=== PATIENT | female | born 1950 | race Caucasian/White ===

== ENCOUNTER → 2016-10-11 | Outpatient (CLI) | payer OTHER ==
[~2016-10-11] MED LIST: ACET-1311 PO; BISA10SU38 PR; CHOL100027 PO; CLOP1TAB15 PO; DEXT40GE PO; DLCS PR; FENT25DI2 TD; FLTE PR; FNTTP50 TD; GLGKIT IM; HMLI SC; INSDGI SC; INSDGI SQ; IPRASOL4 INH; LOSA50TA54 PO; MAGN400T6 PO; MAGNSUS5 PO; MOML PO; MULTTAB58 PO; NRN/300 PO; NRN/600 PO; NRN300 PO; NYST100098 TOP; OXGN; OXYC-57 PO; OXYC7.5T78 PO; POLY335019 PO; ROPI0.5T15 PO; SENN-91 PO; SERT-234 PO; SODIENE PR
[2016-10-11 09:56] LABS: BASO % 0.2 %; BASO ABS # 0.02 K/uL (0-0.2); COMPLETE YES; EOS % 3.5 %; HEMATOCRIT 39.5 % (37-47); IG% 0.2 %; LYMPH % 33.4 %; LYMPH ABS # 3.25 K/uL (1.2-3.4); MEAN CELL VOLUME 95.9 fL (80-100); MEAN CORPUSCULAR HEMOGLOBIN 29.4 pg (25-34); MEAN CORPUSCULAR HGB CONC 30.6 g/dl (32-36); MEAN PLATELET VOLUME 10.9 fL (7.4-10.4); MONO % 7.7 %; PLATELET COUNT 291 K/uL (130-400); RED BLOOD COUNT 4.12 M/uL (4.2-5.4); WHITE BLOOD COUNT 9.74 K/uL (4.8-10.8)
[2016-10-11 10:11] LABS: ESTIMATED AVERAGE GLUCOSE 126 mg/dl; HA1C FLAG Normal (Normal)
[2016-10-11 10:43] LABS: ALB/GLOB RATIO 0.7 (0.9-2); ALKALINE PHOSPHATASE 66 U/L (45-117); ALT/SGPT 15 U/L (12-78); AST/SGOT 13 U/L (15-37); BLOOD UREA NITROGEN 21 mg/dl (7-18); BUN/CREATININE RATIO 28.9 (10-20); CALCIUM 9.2 mg/dl (8.5-10.1); CARBON DIOXIDE 36 mmol/L (21-32); CHLORIDE 100 mmol/L (98-107); CHOLESTEROL 161 mg/dl (0-200); CHOLESTEROL/HDL RATIO 4.7; CREATININE 0.71 mg/dl (0.60-1.20); GLUCOSE 50 mg/dl (70-99); HDL CHOLESTEROL 34 mg/dl; LDL CHOLESTEROL CALCULATED 83 mg/dl; POTASSIUM 4.3 mmol/L (3.5-5.1); SODIUM 142 mmol/L (136-145); TRIGLYCERIDES 221 mg/dl (0-150); VERY LOW DENSITY LIPOPROT CALC 44 mg/dl
== END ==
LOC: C.LABUPUNI 09:36
PROVIDERS: ATTEND Family Medicine
DX: E11.42 Type 2 diabetes mellitus with diabetic polyneuropathy (principal); I50.9 Heart failure, unspecified; I10 Essential (primary) hypertension; E78.5 Hyperlipidemia, unspecified; I25.810 Atherosclerosis of coronary artery bypass graft(s) without angina pectoris

== ENCOUNTER → 2017-02-27 | Outpatient (CLI) | payer OTHER ==
[~2017-02-27] MED LIST changes: +CEPH-571 PO; +INSU100I SQ; +MAGN1TAB19 PO; +NITR-5 PO; +NYST80OI TOP; +SACC250C11 PO; +TRAM-10 PO
[2017-02-27 08:42] LABS: ALT/SGPT 13 U/L (12-78); BLOOD UREA NITROGEN 24 mg/dl (7-18); BUN/CREATININE RATIO 23.5 (10-20); CARBON DIOXIDE 36 mmol/L (21-32); CHLORIDE 100 mmol/L (98-107); GLUCOSE 110 mg/dl (70-99); POTASSIUM 4.3 mmol/L (3.5-5.1); SODIUM 141 mmol/L (136-145)
[2017-02-27 08:43] LABS: HEMATOCRIT 39.3 % (37-47); MEAN CELL VOLUME 98.7 fL (80-100); MEAN CORPUSCULAR HEMOGLOBIN 30.2 pg (25-34); MEAN CORPUSCULAR HGB CONC 30.5 g/dl (32-36); MEAN PLATELET VOLUME 11.5 fL (7.4-10.4); PLATELET COUNT 267 K/uL (130-400); RED BLOOD COUNT 3.98 M/uL (4.2-5.4); WHITE BLOOD COUNT 9.27 K/uL (4.8-10.8)
[2017-02-27 08:44] LABS: CALCIUM 8.6 mg/dl (8.5-10.1)
[2017-02-27 08:45] LABS: ESTIMATED AVERAGE GLUCOSE 117 mg/dl; HA1C FLAG Normal (Normal)
[2017-02-27 08:53] LABS: ALB/GLOB RATIO 0.7 (0.9-2); ALKALINE PHOSPHATASE 80 U/L (45-117); AST/SGOT 18 U/L (15-37)
== END ==
LOC: C.LABUPUNI 08:09
PROVIDERS: ATTEND Family Medicine
DX: E11.42 Type 2 diabetes mellitus with diabetic polyneuropathy (principal); I10 Essential (primary) hypertension; E55.9 Vitamin D deficiency, unspecified; F02.80 Dementia in other diseases classified elsewhere, unspecified severity, without behavioral disturbance, psychotic disturbance, mood disturbance, and anxiety

== ENCOUNTER → 2017-04-10 | Outpatient (CLI) | payer OTHER ==
[~2017-04-10] MED LIST changes: -INSU100I SQ; -NITR-5 PO; -NYST80OI TOP; -SACC250C11 PO; -TRAM-10 PO
[2017-04-10 09:24] LABS: BASO % 0.3 %; BASO ABS # 0.03 K/uL (0-0.2); COMPLETE YES; EOS % 4.4 %; HEMATOCRIT 37.6 % (37-47); IG% 0.3 %; LYMPH ABS # 3.51 K/uL (1.2-3.4); MEAN CELL VOLUME 98.7 fL (80-100); MEAN CORPUSCULAR HEMOGLOBIN 29.4 pg (25-34); MEAN CORPUSCULAR HGB CONC 29.8 g/dl (32-36); MEAN PLATELET VOLUME 10.2 fL (7.4-10.4); MONO % 8.9 %; NEUT % 55.1 %; PLATELET COUNT 379 K/uL (130-400); RED BLOOD COUNT 3.81 M/uL (4.2-5.4); WHITE BLOOD COUNT 11.31 K/uL (4.8-10.8)
[2017-04-10 09:54] LABS: ESTIMATED AVERAGE GLUCOSE 114 mg/dl; HA1C FLAG Normal (Normal)
[2017-04-10 10:18] LABS: ALB/GLOB RATIO 0.6 (0.9-2); ALKALINE PHOSPHATASE 92 U/L (45-117); ALT/SGPT 13 U/L (12-78); AST/SGOT 10 U/L (15-37); BLOOD UREA NITROGEN 22 mg/dl (7-18); BUN/CREATININE RATIO 27.3 (10-20); CALCIUM 9.2 mg/dl (8.5-10.1); CARBON DIOXIDE 38 mmol/L (21-32); CHLORIDE 102 mmol/L (98-107); CHOLESTEROL 154 mg/dl (0-200); CHOLESTEROL/HDL RATIO 4.3; CREATININE 0.79 mg/dl (0.60-1.20); GLUCOSE 33 mg/dl (70-99); HDL CHOLESTEROL 36 mg/dl; LDL CHOLESTEROL CALCULATED 76 mg/dl; POTASSIUM 4.1 mmol/L (3.5-5.1); SODIUM 142 mmol/L (136-145); TRIGLYCERIDES 212 mg/dl (0-150); VERY LOW DENSITY LIPOPROT CALC 42 mg/dl
== END ==
LOC: C.LABUPUNI 08:46
PROVIDERS: ATTEND Family Medicine
DX: D63.1 Anemia in chronic kidney disease (principal); E11.9 Type 2 diabetes mellitus without complications; I10 Essential (primary) hypertension; E78.5 Hyperlipidemia, unspecified

== ENCOUNTER → 2017-04-12 | Outpatient (CLI) | payer OTHER ==
[2017-04-12 08:38] LABS: HEMATOCRIT 36.5 % (37-47); MEAN CELL VOLUME 100.8 fL (80-100); MEAN CORPUSCULAR HEMOGLOBIN 31.8 pg (25-34); MEAN CORPUSCULAR HGB CONC 31.5 g/dl (32-36); MEAN PLATELET VOLUME 10.8 fL (7.4-10.4); PLATELET COUNT 304 K/uL (130-400); RED BLOOD COUNT 3.62 M/uL (4.2-5.4); WHITE BLOOD COUNT 10.14 K/uL (4.8-10.8)
== END ==
LOC: C.LABUPUNI 08:20
PROVIDERS: ATTEND Family Medicine
DX: R05 Cough (principal)

== ENCOUNTER 2017-06-27 08:37 | Inpatient (IN) | payer OTHER ==
[2017-06-27] VITALS (8 sets, daily range): BP systolic 104; BP diastolic 64; PULSE 75–83; TEMP 36.6–37.5; O2SAT 94–100; BMI 35.5
[~2017-06-27] VITALS: Ht 170.2 cm; Wt 106.8 kg
[~2017-06-27 08:37] MED LIST changes: -BISA10SU38 PR; -CEPH-571 PO; -DEXT40GE PO; -FNTTP50 TD; -GLGKIT IM; -INSDGI SQ; -IPRASOL4 INH; -MAGN1TAB19 PO; -MOML PO; -MULTTAB58 PO; -NRN/300 PO; -NRN/600 PO; -OXYC-57 PO; -SERT-234 PO; -SODIENE PR
[2017-06-27] MEDS ORDERED: FNTTP50 TD (09:08)
[2017-06-27] MEDS ORDERED: NRN/600 PO (09:08)
--- NOTE | 2017-06-27 09:12 | DIAGNOSTIC IMAGING REPORT ---
CHEST ONE VIEW PORTABLE CLINICAL HISTORY: 66 years-old Female presenting with FEVER, . TECHNIQUE: Portable upright AP view of the chest was obtained. COMPARISON: 12/14/2015. FINDINGS: Cardiac silhouette mildly prominent, unchanged. Mildly low lung volumes with hypoventilatory changes. Prominence of pulmonary vasculature. Elevation of the right hemidiaphragm, unchanged. Interval increase in right basilar opacity. Suspected small right pleural effusion. Left lung and pleural space clear. Osseous structures normal. Upper abdomen normal. IMPRESSION: 1. Right basilar opacity suspected. This be better demonstrated with dedicated PA and lateral views. This could be consistent with a focal consolidation/pneumonia. 2. Suspected small right pleural effusion. 3. Mild cardiomegaly with pulmonary basilar prominence could suggest volume overload. Electronically signed by: Cl Frank M.D. 06/27/2017 9:10 AM Dictated Date/Time: 06/27/2017 9:09 AM
[2017-06-27] MEDS ORDERED: MULTTAB58 PO (09:14)
[2017-06-27] MEDS ORDERED: INSDGI SQ (09:14)
[2017-06-27] MEDS ORDERED: SERT-234 PO (09:16)
[2017-06-27] MEDS ORDERED: NRN/300 PO (09:16)
[2017-06-27] MEDS ORDERED: CEFEPIME IV 2,000 MG in DEXTROSE 5% 100ML 100 ML IV STA (09:17)
[2017-06-27] MEDS ORDERED: SODIUM CHLORIDE 0.9% 500ML 500 ML IV STA (09:17)
[2017-06-27] MEDS ORDERED: OXYC-57 PO (09:18)
[2017-06-27] MEDS ORDERED: BISA10SU38 PR (09:19)
--- NOTE | 2017-06-27 09:19 | EMERGENCY ROOM VISIT NOTE ---
History Report prepared by Silvana: Muna Agee Under the Supervision of: Dr. Francisco Oates M.D. First contact with patient: 09:10 Chief Complaint: ILLNESS Stated Complaint: LETHARGIC/FEVER History of Present Illness The patient is a 66 year old female who presents to the Emergency Room with complaints of a persistent illness that began prior to arrival. Per nursing staff, the patient arrives via ALS from the [facility] with a history of Parkinson's disease. Nursing staff reports that the patient wears 2 liters of supplemental nasal cannula oxygen at all times. Nursing staff reports that ALS was called when the patient was found to have a fever this morning and an increase in tremors. Nursing staff reports that the patient has a history of frequent UTIs. The patient denies any pain. Source of History: patient Onset: prior to arrival Position: other (global) Quality: other (illness) Timing: other (persistent) Associated Symptoms: + fevers Note: Associated Symptoms: increased tremors Review of Systems See HPI for pertinent positives & negatives. A total of 10 systems reviewed and were otherwise negative. Past Medical & Surgical Medical Problems: (1) Anxiety disorder (2) Atrial flutter (3) Benign hypertension (4) Chronic Kidney Disease, Stage V (5) Coronary artery disease (6) Dementia (7) Depressive disorder (8) Diabetes mellitus type 2 (9) encephalopathy (10) Gastroesophageal reflux disease (11) History of [place] (myocardial infarction) (12) Hx-Venous Thrombosis&Embolism (13) Hyperlipidemia (14) Hyperlipidemia Nec/Nos (15) Hypertension Nos (16) Parkinson's disease (17) Personal Hx Of Tia,& Cerebral Infarction W/Out Res Deficits Family History Diabetes mellitus Heart disease Social History Smoking Status: Unknown if Ever Smoked Alcohol Use: none Drug Use: none Marital Status: Housing Status: [facility] Occupation Status: disabled Current/Historical Medications Scheduled Acetaminophen (Tylenol), 650 MG PO Q4HR PRN Acetaminophen (Tylenol), 650 MG PO Q4HR PRN Bisacodyl (Dulcolax), 1 SUPP ND UD Cholecalciferol (Vitamin D 1000 Unit), 5,000 INTER.UNIT PO DAILY Clopidogrel (Plavix), 75 MG PO DAILY Dextrose (Diabetic Use) (Insta-Glucose), 1 DOSE PO UD Fentanyl (Duragesic), 50 MCG TD CQ72HR Gabapentin (Neurontin), 1,200 MG PO HS Gabapentin (Neurontin), 900 MG PO BID Glucagon (Glucagon Emergency Kit), 1 DOSE IM UD Insulin Glargine (Lantus), 35 UNITS SQ QAM Insulin Lispro (Humalog), Unknown Dose SC ACHS Ipratropium-Albuterol (Duoneb), 1 TREATMENT INH Q4H Losartan Potassium (Cozaar), 50 MG PO DAILY Magnesium Hydroxide (Milk Of Magnesia), 30 ML PO UD Magnesium Oxide (Mag-Ox), 400 MG PO TID Multiple Vitamin (Multivitamin), 1 TAB PO QAM Polyethylene Glycol 3350 (Miralax), 17 GM PO DAILY Ropinirole (Requip), 0.5 MG PO BID Sennosides-Docusate Sodium (Senna S), 1 TAB PO BID Sertraline (Zoloft), 100 MG PO QAM Sodium Phosphate/Biphosphate (Fleet Enema), 1 EA ND UD Scheduled PRN Home O2 Therapy (Oxygen), 2 LITERS NA DAILY PRN for KEEP O2 SATS UP Oxycodone/Acetaminophen 5MG/325MG (Percocet 5MG/325MG), 1 TABLETS PO QID PRN for Pain Allergies Coded Allergies: Iodine (Verified Allergy, Mild, 06/27/17) Penicillins (Verified Allergy, Mild, PATIENT HAS TOLERATED CEFEPIME 02/02, 06/27/17) Amoxicillin (Unverified Allergy, Unknown, unknown, 06/27/17) Clavulanic Acid (Unverified Allergy, Unknown, unknown, 06/27/17) Lactase (Verified Allergy, Unknown, ., 06/27/17) Pseudoephedrine (Verified Allergy, Unknown, UNKNOWN, 06/27/17) Physical Exam Vital Signs Date Time Temp Pulse Resp B/P (MAP) Pulse Ox O2 Delivery O2 Flow Rate FiO2 06/27/17 13:04 74 16 83/41 100 Nasal Cannula 5.0 06/27/17 12:27 77 06/27/17 12:18 81 100 Nasal Cannula 5.0 06/27/17 11:52 97 Nasal Cannula 2.0 06/27/17 11:25 87 156/123 97 Room Air 06/27/17 11:07 96 30 91 06/27/17 10:37 110 25 06/27/17 10:31 121/98 06/27/17 10:12 148/100 06/27/17 10:09 94 148/100 2 Nasal Cannula 06/27/17 10:07 92 21 94 06/27/17 10:02 104/78 06/27/17 09:37 97 23 94 06/27/17 09:35 97 22 94 Nasal Cannula 2.0 Venturi Mask 06/27/17 09:31 37.4 06/27/17 09:07 100 23 90 06/27/17 08:55 132 06/27/17 08:52 37.6 110/80 90 Nasal Cannula 2.0 06/27/17 08:50 90 Nasal Cannula 2.0 06/27/17 08:50 94 Nasal Cannula 2.0 06/27/17 08:43 110/80 Physical Exam GENERAL: Patient is in no acute distress. HEENT: No acute trauma, normocephalic atraumatic, mucous membranes moist, no nasal congestion, no scleral icterus. NECK: No stridor, no adenopathy, no meningismus, trachea is midline. LUNGS: Clear to auscultation bilaterally, no wheeze, no rhonchi, breath sounds equal. HEART: Without murmurs gallops or rubs, regular rate and rhythm. ABDOMEN: Soft, nontender, bowel sounds positive, no hernias, no peritonitis. EXTREMITIES: No cyanosis or edema, full range of motion of all the joints without pain or difficulty, no signs for acute trauma. NEUROLOGIC: Extremity tremors consistent with Parkinsons, awake, answers simple questions, no focal deficits. SKIN: No rash, no jaundice, no diaphoresis. Medical Decision & Procedures ER Provider Diagnostic Interpretation: X-ray results as stated below per interpretation by me and the radiologist: CHEST ONE VIEW PORTABLE CLINICAL HISTORY: 66 years-old Female presenting with FEVER, . TECHNIQUE: Portable upright AP view of the chest was obtained. COMPARISON: 12/14/2015. FINDINGS: Cardiac silhouette mildly prominent, unchanged. Mildly low lung volumes with hypoventilatory changes. Prominence of pulmonary vasculature. Elevation of the right hemidiaphragm, unchanged. Interval increase in right basilar opacity. Suspected small right pleural effusion. Left lung and pleural space clear. Osseous structures normal. Upper abdomen normal. IMPRESSION: 1. Right basilar opacity suspected. This be better demonstrated with dedicated PA and lateral views. This could be consistent with a focal consolidation/pneumonia. 2. Suspected small right pleural effusion. 3. Mild cardiomegaly with pulmonary basilar prominence could suggest volume overload. Electronically signed by: Cl Frank M.D. 06/27/2017 9:10 AM Dictated Date/Time: 06/27/2017 9:09 AM Laboratory Results 06/27/17 09:50 Red Blood Count 4.03, Mean Corpuscular Volume 101.7, Mean Corpuscular Hemoglobin 29.3, Mean Corpuscular Hemoglobin Concent 28.8, Mean Platelet Volume 10.9, Neutrophils (%) (Auto) 75.1, Lymphocytes (%) (Auto) 13.6, Monocytes (%) ( Auto) 8.3, Eosinophils (%) (Auto) 2.7, Basophils (%) (Auto) 0.1, Neutrophils # ( Auto) 13.76, Lymphocytes # (Auto) 2.50, Monocytes # (Auto) 1.53, Eosinophils # ( Auto) 0.49, Basophils # (Auto) 0.02 06/27/17 09:50 Test 06/27/17 09:49 06/27/17 09:50 06/27/17 09:58 06/27/17 11:00 Prothrombin Time 9.9 SECONDS (9.0-12.0) Prothromb Time International Ratio 0.9 (0.9-1.1) Activated Partial Thromboplast Time 29.4 SECONDS (21.0-31.0) Partial Thromboplastin Ratio 1.1 White Blood Count 18.34 K/uL (4.8-10.8) Red Blood Count 4.03 M/uL (4.2-5.4) Hemoglobin 11.8 g/dL (12.0-16.0) Hematocrit 41.0 % (37-47) Mean Corpuscular Volume 101.7 fL (80-100) Mean Corpuscular Hemoglobin 29.3 pg (25-34) Mean Corpuscular Hemoglobin Concent 28.8 g/dl (32-36) Platelet Count 290 K/uL (130-400) Mean Platelet Volume 10.9 fL (7.4-10.4) Neutrophils (%) (Auto) 75.1 % Lymphocytes (%) (Auto) 13.6 % Monocytes (%) (Auto) 8.3 % Eosinophils (%) (Auto) 2.7 % Basophils (%) (Auto) 0.1 % Neutrophils # (Auto) 13.76 K/uL (1.4-6.5) Lymphocytes # (Auto) 2.50 K/uL (1.2-3.4) Monocytes # (Auto) 1.53 K/uL (0.11-0.59) Eosinophils # (Auto) 0.49 K/uL (0-0.5) Basophils # (Auto) 0.02 K/uL (0-0.2) RDW Standard Deviation 55.2 fL (36.4-46.3) RDW Coefficient of Variation 14.9 % (11.5-14.5) Immature Granulocyte % (Auto) 0.2 % Immature Granulocyte # (Auto) 0.04 K/uL (0.00-0.02) Anion Gap 2.0 mmol/L (3-11) Est Creatinine Clear Calc Drug Dose 81.9 ml/min Estimated GFR () 86.5 Estimated GFR (Non- 74.6 BUN/Creatinine Ratio 32.7 (10-20) Calcium Level 8.9 mg/dl (8.5-10.1) Magnesium Level 2.5 mg/dl (1.8-2.4) Total Bilirubin 0.2 mg/dl (0.2-1) Aspartate Amino Transf (AST/SGOT) 11 U/L (15-37) Alanine Aminotransferase (ALT/SGPT) 12 U/L (12-78) Alkaline Phosphatase 101 U/L (45-117) Total Protein 6.4 gm/dl (6.4-8.2) Albumin 2.6 gm/dl (3.4-5.0) Globulin 3.8 gm/dl (2.5-4.0) Albumin/Globulin Ratio 0.7 (0.9-2) Bedside Lactic Acid Venous 0.81 mmol/L (0.90-1.70) Urine Color YELLOW Urine Appearance CLOUDY (CLEAR) Urine pH 5.5 (4.5-7.5) Urine Specific [facility] 1.022 (1.000-1.030) Urine Protein NEG (NEG) Urine Glucose (UA) NEG (NEG) Urine Ketones NEG (NEG) Urine Occult Blood 1+ (NEG) Urine Nitrite POS (NEG) Urine Bilirubin NEG (NEG) Urine Urobilinogen NEG (NEG) Urine Leukocyte Esterase MODERATE (NEG) Urine WBC (Auto) >30 /hpf (0-5) Urine RBC (Auto) 0-4 /hpf (0-4) Urine Hyaline Casts (Auto) 1-5 /lpf (0-5) Urine Epithelial Cells (Auto) >30 /lpf (0-5) Urine Bacteria (Auto) 4+ (NEG) Urine Yeast (Auto) (NONE PRSENT) Test 06/27/17 11:24 Bedside Glucose 107 mg/dl (70-90) Laboratory results reviewed by me. Medications Administered Medications (Trade) Dose Ordered Sig/Shiva Route Start Time Stop Time Status Last Admin Dose Admin Sodium Chloride 500 ml @ 999 mls/hr Q31M STAT IV 06/27/17 09:17 06/27/17 09:47 DC 06/27/17 09:17 999 MLS/HR Cefepime HCl 2000 mg/Dextrose 112.5 ml @ 200 mls/hr ONE STAT IV 06/27/17 09:17 06/27/17 09:50 DC 06/27/17 09:57 200 MLS/HR Dextrose (Dextrose 50% 50ML Syringe) 50 ml STK-MED ONCE .ROUTE 06/27/17 10:37 06/27/17 10:38 DC 06/27/17 10:37 50 ML Albuterol/ Ipratropium (Duoneb) 3 ml Q4R INH 06/27/17 12:30 07/27/17 12:29 06/27/17 15:18 3 ML Oxycodone/ Acetaminophen (Percocet 5-325mg Tab) 1 tab QID PRN PO 06/27/17 12:30 07/11/17 12:29 06/27/17 14:50 1 TAB ECG Indication: other (increased tremors, fever) Rate (beats per minute): 133 Rhythm: other (narrow complex tachycardia) Findings: no acute ischemic change, no ectopy, other (baseline artifact making interpretation difficult) ED Course 0913: The patient was evaluated in room B12B. A complete history and physical exam was performed. 0917: Ordered Cefepime HCl 2000 mg/Dextrose 112.5 ml @ 200 mls/hr IV, Sodium Chloride 500 ml @ 999 mls/hr IV. 1037: Ordered Dextrose 50 ml .route. 1138: I discussed the patients case with Dr. SIVAKUMAR Lazcano. He is going to evaluate the patient for further treatment. Medical Decision The patient is a 66 year old female who presents to the ED with complaints of an illness. Differential diagnoses considered include sepsis, bacteremia, dehydration, UTI, pneumonia, cellulitis, electrolyte imbalance, renal failure. There is a significant leukocytosis at 18,000, this is consistent with infection. No concerning anemia. No kidney failure or hepatitis. EKG shows a narrow complex tachycardia, the rhythm was hard to interpret as there was significant baseline artifact. No acute ischemic change by EKG. Chest x-ray shows some possible congestion or atelectasis at the right base. Urinalysis does suggest infection. Urine culture and blood cultures are pending. Lactic acid level is not elevated making severe sepsis less likely. The patient received IV saline, she received IV cefepime. She received IV dextrose as her sugar dropped during her ER stay. The patient has been aggressively managed. I believe she is septic from a urinary source. This has caused the fever, increased tremor and change in mental status. Admission/observation is warranted. I spoke to the patient and case management. The on-call hospitalist was consulted. Medication Reconcilliation Current Medication List: was personally reviewed by me Blood Pressure Screening Patient's blood pressure: Elevated blood pressure Blood pressure disposition: Elevated BP felt to be situational Consults Time Called: 1121 Consulting Physician: SIVAKUMAR Perez Returned Call: [phone] I discussed the patients case with SIVAKUMAR ePrez. He is going to evaluate the patient for further treatment. Impression Primary Impression: Sepsis Additional Impressions: Change in mental status Hypoglycemia UTI (urinary tract infection) Critical Care I have personally spent greater than 34 minutes of critical care time in the direct management of this patient. This includes bedside care, interpretation of diagnostic studies, and testing, discussion with consultants, patient, and family members, and other required patient management activities. This 34 minutes is in excess of all separately billable procedures. Scribe Attestation The scribe's documentation has been prepared under my direction and personally reviewed by me in its entirety. I confirm that the note above accurately reflects all work, treatment, procedures, and medical decision making performed by me. Departure Information Dispostion Being Evaluated By Hospitalist Referrals [facility] (PCP) Problem Qualifiers
[2017-06-27] MEDS ORDERED: SODIENE PR (09:20)
[2017-06-27] MEDS ORDERED: IPRASOL4 INH (09:20)
[2017-06-27] MEDS ORDERED: GLGKIT IM (09:23)
[2017-06-27] MEDS ORDERED: MOML PO (09:23)
[2017-06-27] MEDS ORDERED: DEXT40GE PO (09:23)
[2017-06-27 10:20] LABS: INR 0.9 (0.9-1.1); PARTIAL THROMBOPLASTIN RATIO 1.1; PROTHROMBIN TIME (PATIENT) 9.9 SECONDS (9.0-12.0)
[2017-06-27 10:32] LABS: ALB/GLOB RATIO 0.7 (0.9-2); BUN/CREATININE RATIO 32.7 (10-20); CALCIUM 8.9 mg/dl (8.5-10.1); CREATININE 0.81 mg/dl (0.60-1.20); MAGNESIUM 2.5 mg/dl (1.8-2.4); POTASSIUM 4.4 mmol/L (3.5-5.1)
[2017-06-27 10:35] LABS: MEAN CELL VOLUME 101.7 fL (80-100); MEAN CORPUSCULAR HEMOGLOBIN 29.3 pg (25-34); MEAN CORPUSCULAR HGB CONC 28.8 g/dl (32-36); MEAN PLATELET VOLUME 10.9 fL (7.4-10.4); PLATELET COUNT 290 K/uL (130-400); RED BLOOD COUNT 4.03 M/uL (4.2-5.4); WHITE BLOOD COUNT 18.34 K/uL (4.8-10.8)
[2017-06-27] MEDS ORDERED: DEXTROSE 50% 50 ML SYR ONE (10:37)
[2017-06-27] MEDS ORDERED: DEXTROSE 50% 50 ML SYR IV ONE (10:45)
[2017-06-27 11:14] LABS: MANUAL MICROSCOPIC REQUIRED? NO; REVIEW REQ? YES; URINE APPEARANCE CLOUDY (CLEAR); URINE BILIRUBIN NEG (NEG); URINE COLOR YELLOW; URINE NITRITE POS (NEG); URINE PH 5.5 (4.5-7.5); URINE SPECIFIC GRAVITY 1.022 (1.000-1.030); UROBILINOGEN NEG (NEG)
[2017-06-27 11:26] LABS: URINE EPITHELIAL CELL AUTO >30 /lpf (0-5)
[2017-06-27 11:42] LABS: BASO % 0.1 %; BASO ABS # 0.02 K/uL (0-0.2); COMPLETE YES; EOS % 2.7 %; IG% 0.2 %; LYMPH % 13.6 %; MONO % 8.3 %; NEUT % 75.1 %
[2017-06-27] MEDS ORDERED: ONDANSETRON INJ 2 MG/ML 2 ML VIAL IV PRN (12:30)
[2017-06-27] MEDS ORDERED: POLYETHYLENE (MIRALAX) 17 GM PACK PO PRN (12:30)
[2017-06-27] MEDS ORDERED: ALUMINUM/MAGNESIUM/SIMETH (MAALOX MAX) 30 ML UDC PO PRN (12:30)
[2017-06-27] MEDS ORDERED: OXYCODONE/ACETAMINOPHEN 5-325 TAB PO PRN (12:30)
[2017-06-27] MEDS ORDERED: ACETAMINOPHEN 325 MG TAB PO PRN (12:30)
[2017-06-27] MEDS ORDERED: MAGNESIUM HYDROXIDE SUSP 30 ML UDC PO PRN (12:30)
[2017-06-27] MEDS ORDERED: SODIUM CHLORIDE 0.9% 1000ML 1,000 ML IV SCH (12:45)
--- NOTE | 2017-06-27 12:56 | History and Physical ---
History & Physical Date & Time of Service: Jun 27, 2017 at 12:41 Chief Complaint: Lethargic/Fever Primary Care Physician: Josué Skelton History of Present Illness Source: patient 66 y/o F Hx Parkinson, CAD, HTN, HPL, morbid obesity with 02-dependence, dementia. Pt resides in a nursing facility and was transported to the hospital due to lethargy/AMS and a fever. On arrival to the ER her initial POC revealed a glucose of 45 - a value of 85 was reported by EMS. She was febrile and tachycardic in addition, although per an EKG, the tachycardia may have been related to atrial flutter or SVT. She reverted to sinus rhythm with fluid administration. The pt, owing to dementia, did not know why she was sent to the hospital and had no specific complaints. She was awake and alert at the time of admission. Past Medical/Surgical History 1) Parkinson disease 2) Dementia 3) Morbid obesity 4) DM II 5) Chronic immobility 6) CAD - history of PR and remote stent 7) GERD 8) TIA 9) HTN 10) HPL Family History Diabetes mellitus Heart disease Could not provide detail Social History Smoking Status: Never Smoker Drug Use: none Marital Status: Housing status: senior living Occupational Status: disabled Immunizations History of Influenza Vaccine: Yes Influenza Vaccine Date: Sep 10, 2011 History of Tetanus Vaccine?: Unknown History of Pneumococcal: Yes Pneumococcal Date: Sep 10, 2011 History of Hepatitis B Vaccine: Yes Multi-Drug Resistant Organisms History of MDRO: Yes Allergies Coded Allergies: Iodine (Verified Allergy, Mild, 06/27/17) Penicillins (Verified Allergy, Mild, PATIENT HAS TOLERATED CEFEPIME 02/02, 06/27/17) Amoxicillin (Unverified Allergy, Unknown, unknown, 06/27/17) Clavulanic Acid (Unverified Allergy, Unknown, unknown, 06/27/17) Lactase (Verified Allergy, Unknown, ., 06/27/17) Pseudoephedrine (Verified Allergy, Unknown, UNKNOWN, 06/27/17) Home Medications Scheduled Acetaminophen (Tylenol), 650 MG PO Q4HR PRN Acetaminophen (Tylenol), 650 MG PO Q4HR PRN Bisacodyl (Dulcolax), 1 SUPP DE UD Cholecalciferol (Vitamin D 1000 Unit), 5,000 INTER.UNIT PO DAILY Clopidogrel (Plavix), 75 MG PO DAILY Dextrose (Diabetic Use) (Insta-Glucose), 1 DOSE PO UD Fentanyl (Duragesic), 50 MCG TD CQ72HR Gabapentin (Neurontin), 1,200 MG PO HS Gabapentin (Neurontin), 900 MG PO BID Glucagon (Glucagon Emergency Kit), 1 DOSE IM UD Insulin Glargine (Lantus), 35 UNITS SQ QAM Insulin Lispro (Humalog), Unknown Dose SC ACHS Ipratropium-Albuterol (Duoneb), 1 TREATMENT INH Q4H Losartan Potassium (Cozaar), 50 MG PO DAILY Magnesium Hydroxide (Milk Of Magnesia), 30 ML PO UD Magnesium Oxide (Mag-Ox), 400 MG PO TID Multiple Vitamin (Multivitamin), 1 TAB PO QAM Polyethylene Glycol 3350 (Miralax), 17 GM PO DAILY Ropinirole (Requip), 0.5 MG PO BID Sennosides-Docusate Sodium (Senna S), 1 TAB PO BID Sertraline (Zoloft), 100 MG PO QAM Sodium Phosphate/Biphosphate (Fleet Enema), 1 EA DE UD Scheduled PRN Home O2 Therapy (Oxygen), 2 LITERS NA DAILY PRN for KEEP O2 SATS UP Oxycodone/Acetaminophen 5MG/325MG (Percocet 5MG/325MG), 1 TABLETS PO QID PRN for Pain Review of Systems Pt could not provide - sent in from [place] due to fever and lethargy Physical Exam Vital Signs Date Time Temp Pulse Resp B/P (MAP) Pulse Ox O2 Delivery O2 Flow Rate FiO2 06/27/17 11:52 97 Nasal Cannula 2.0 06/27/17 11:25 87 156/123 97 Room Air 06/27/17 11:07 96 30 91 06/27/17 10:37 110 25 06/27/17 10:31 121/98 06/27/17 10:12 148/100 06/27/17 10:09 94 148/100 2 Nasal Cannula 06/27/17 10:07 92 21 94 06/27/17 10:02 104/78 06/27/17 09:37 97 23 94 06/27/17 09:35 97 22 94 Nasal Cannula 2.0 Venturi Mask 06/27/17 09:31 37.4 06/27/17 09:07 100 23 90 06/27/17 08:55 132 06/27/17 08:52 37.6 110/80 90 Nasal Cannula 2.0 06/27/17 08:50 90 Nasal Cannula 2.0 06/27/17 08:50 94 Nasal Cannula 2.0 06/27/17 08:43 110/80 General Appearance: WD/WN, + pertinent finding (Pleasant, obeses, elderly female - AAO x 1 - answers questions appropriately) Head: normocephalic Eyes: normal inspection ENT: normal ENT inspection, pharynx normal Neck: supple, + pertinent finding (Exam limited by habitus) Respiratory/Chest: chest non-tender, lungs clear, normal breath sounds Cardiovascular: regular rate, rhythm, no edema, no gallop, no murmur Abdomen/GI: normal bowel sounds, non tender, soft Back: normal inspection, no CVA tenderness Extremities/Musculoskelatal: normal inspection, no calf tenderness, normal capillary refill, no pedal edema, + pertinent finding (Lower extremity wasting apparent - LLE externally rotated - no pain with movement) Neurologic/Psych: ward service supervisor II-XII nml as tested, no motor/sensory deficits, alert, + pertinent finding (AAO x 1.5) Skin: normal color, warm/dry Diagnostics Laboratory Results Results Past 24 Hours Test 06/27/17 09:49 06/27/17 09:50 06/27/17 09:58 06/27/17 11:00 Range/Units Prothrombin Time 9.9 9.0-12.0 SECONDS Prothromb Time International Ratio 0.9 0.9-1.1 Activated Partial Thromboplast Time 29.4 21.0-31.0 SECONDS Partial Thromboplastin Ratio 1.1 White Blood Count 18.34 4.8-10.8 K/uL Red Blood Count 4.03 4.2-5.4 M/uL Hemoglobin 11.8 12.0-16.0 g/dL Hematocrit 41.0 37-47 % Mean Corpuscular Volume 101.7 80-100 fL Mean Corpuscular Hemoglobin 29.3 25-34 pg Mean Corpuscular Hemoglobin Concent 28.8 32-36 g/dl Platelet Count 290 130-400 K/uL Mean Platelet Volume 10.9 7.4-10.4 fL Neutrophils (%) (Auto) 75.1 % Lymphocytes (%) (Auto) 13.6 % Monocytes (%) (Auto) 8.3 % Eosinophils (%) (Auto) 2.7 % Basophils (%) (Auto) 0.1 % Neutrophils # (Auto) 13.76 1.4-6.5 K/uL Lymphocytes # (Auto) 2.50 1.2-3.4 K/uL Monocytes # (Auto) 1.53 0.11-0.59 K/uL Eosinophils # (Auto) 0.49 0-0.5 K/uL Basophils # (Auto) 0.02 0-0.2 K/uL RDW Standard Deviation 55.2 36.4-46.3 fL RDW Coefficient of Variation 14.9 11.5-14.5 % Immature Granulocyte % (Auto) 0.2 % Immature Granulocyte # (Auto) 0.04 0.00-0.02 K/uL Sodium Level 145 136-145 mmol/L Potassium Level 4.4 3.5-5.1 mmol/L Chloride Level 104 98-107 mmol/L Carbon Dioxide Level 39 21-32 mmol/L Anion Gap 2.0 3-11 mmol/L Blood Urea Nitrogen 27 7-18 mg/dl Creatinine 0.81 0.60-1.20 mg/dl Est Creatinine Clear Calc Drug Dose 81.9 ml/min Estimated GFR () 86.5 Estimated GFR (Non- 74.6 BUN/Creatinine Ratio 32.7 10-20 Random Glucose 42 70-99 mg/dl Calcium Level 8.9 8.5-10.1 mg/dl Magnesium Level 2.5 1.8-2.4 mg/dl Total Bilirubin 0.2 0.2-1 mg/dl Aspartate Amino Transf (AST/SGOT) 11 15-37 U/L Alanine Aminotransferase (ALT/SGPT) 12 12-78 U/L Alkaline Phosphatase 101 45-117 U/L Total Protein 6.4 6.4-8.2 gm/dl Albumin 2.6 3.4-5.0 gm/dl Globulin 3.8 2.5-4.0 gm/dl Albumin/Globulin Ratio 0.7 0.9-2 Bedside Lactic Acid Venous 0.81 0.90-1.70 mmol/L Urine Color YELLOW Urine Appearance CLOUDY CLEAR Urine pH 5.5 4.5-7.5 Urine Specific [place] 1.022 1.000-1.030 Urine Protein NEG NEG Urine Glucose (UA) NEG NEG Urine Ketones NEG NEG Urine Occult Blood 1+ NEG Urine Nitrite POS NEG Urine Bilirubin NEG NEG Urine Urobilinogen NEG NEG Urine Leukocyte Esterase MODERATE NEG Urine WBC (Auto) >30 0-5 /hpf Urine RBC (Auto) 0-4 0-4 /hpf Urine Hyaline Casts (Auto) 1-5 0-5 /lpf Urine Epithelial Cells (Auto) >30 0-5 /lpf Urine Bacteria (Auto) 4+ NEG Urine Yeast (Auto) NONE PRSENT Test 06/27/17 11:24 Range/Units Bedside Glucose 107 70-90 mg/dl Microbiology Results 06/27/17 Blood Culture, Received Pending 06/27/17 Blood Culture, Received Pending 06/27/17 Urine Culture, Received Pending EKG A flutter - new onset Impression Assessment and Plan 66 y/o F Hx Parkinson, CAD, HTN, HPL, morbid obesity with 02-dependence, dementia. Pt resides in a nursing facility and was transported to the hospital due to lethargy/AMS and a fever. On arrival to the ER her initial POC revealed a glucose of 45 - a value of 85 was reported by EMS. She was febrile and tachycardic in addition, although per an EKG, the tachycardia may have been related to atrial flutter or SVT. She reverted to sinus rhythm with fluid administration. The pt, owing to dementia, did not know why she was sent to the hospital and had no specific complaints. She was awake and alert at the time of admission. 1) UTI - leukocytosis and fever present on admission - AMS reported at nursing facility. Pt placed on Ceftriaxone pending culture results. IVF provided. Assigned to telemetry due to indeterminate tachycardia. 2) Tachycardia - resolved with IVF - initial EKG is indeterminate - reported as SVT vs flutter by cardiology. Should also consider artifact as she was exhibiting persistent tremors. Currently in a sinus rhythm - would consider full workup if there is recurrence of tachycardia and clear evidence of flutter/ SVT. 3) Parkinson - cont Requip 4) DM - hypoglycemic on arrival - resolved with D50 - monitor on telemetry - long-acting insulin held - placed on SS 5) Dementia - pt resides in a NH and is entirely care-dependent 6) Chronic hypoxia - obesity hypoventilation - placed on 02 protocol Full code - Heparin prophylaxis Total time for this admit including review of labs, meds, EKG - discussion with pt and ER attending - 37 min Level of Care Telemetry Advanced Directives Existing Living Will: Yes Existing Power of Application Architect: Yes (EVITA SISTER ) Resuscitation Status FULL RESUSCITATION VTE Prophylaxis VTE Risk Assessment Done? Y/N: Yes Risk Level: Moderate Given or contraindicated: Unfractionated heparin SQ
[2017-06-27] MEDS ORDERED: FENTANYL PATCH REMOVE & WASTE SCH (14:45)
[2017-06-27] MEDS ORDERED: GLUCOSE 10 TABS/TUBE PO PRN (14:45)
[2017-06-27] MEDS ORDERED: DEXTROSE 50% 50 ML SYR IV PRN (14:45)
[2017-06-27] MEDS ORDERED: GLUCAGON FOR INJ 1 MG VIAL SQ PRN (14:45)
[2017-06-27] MEDS ORDERED: GLUCOSE 40% GEL 15 GM TUBE PO PRN (14:45)
[2017-06-27] MEDS ORDERED: FENTANYL 50 MCG/HR TDSY TD SCH (14:46)
[2017-06-27] MEDS: ALBUT/IPRATROP 3MG/0.5MG NEB 3 ML VIAL INH SCH ×3 (15:18→22:59)
[2017-06-27] MEDS: CHECK FENTANYL PATCH PLACEMENT SCH (16:07)
[2017-06-27] MEDS: INSULIN ASPART 100 UNITS/ML 3 ML PEN SC SCH ×2 (16:15→20:14)
[2017-06-27] MEDS: CEFTRIAXONE SOD INJ 1 GM in DEXTROSE 5% ADD-VANTAGE 50ML 50 ML IV SCH (18:35)
[2017-06-27] MEDS: ROPINIROLE HCL 1 MG TAB PO SCH (20:19)
[2017-06-27] MEDS: DOCUSATE SODIUM/SENNA 50/8.6MG TAB PO SCH (20:19)
[2017-06-27] MEDS: GABAPENTIN 600 MG TAB PO SCH (20:19)
[2017-06-27] MEDS: MAGNESIUM OXIDE 400 MG TAB PO SCH (20:19)
[2017-06-28] VITALS (16 sets, daily range): BP systolic 112–142; BP diastolic 64–99; PULSE 73–123; TEMP 36.4–36.9; O2SAT 88–99
[2017-06-28] MEDS: CHECK FENTANYL PATCH PLACEMENT SCH ×3 (00:31→16:00)
[2017-06-28] MEDS: ALBUT/IPRATROP 3MG/0.5MG NEB 3 ML VIAL INH SCH ×6 (03:15→23:11)
[2017-06-28 06:05] LABS: HEMATOCRIT 37.4 % (37-47); MEAN CORPUSCULAR HEMOGLOBIN 29.4 pg (25-34); MEAN CORPUSCULAR HGB CONC 29.4 g/dl (32-36); MEAN PLATELET VOLUME 10.9 fL (7.4-10.4); PLATELET COUNT 238 K/uL (130-400); RED BLOOD COUNT 3.74 M/uL (4.2-5.4); WHITE BLOOD COUNT 12.92 K/uL (4.8-10.8)
[2017-06-28 06:48] LABS: BUN/CREATININE RATIO 32.4 (10-20); CALCIUM 8.5 mg/dl (8.5-10.1); CREATININE 0.75 mg/dl (0.60-1.20); MAGNESIUM 2.5 mg/dl (1.8-2.4); POTASSIUM 4.1 mmol/L (3.5-5.1)
[2017-06-28] MEDS: INSULIN ASPART 100 UNITS/ML 3 ML PEN SC SCH ×4 (07:00→21:42)
[2017-06-28] MEDS: GABAPENTIN 300 MG CAP PO SCH ×3 (08:05→21:51)
[2017-06-28] MEDS: LOSARTAN POTASSIUM 50 MG TAB PO SCH (08:05)
[2017-06-28] MEDS: CLOPIDOGREL BISULFATE 75 MG TAB PO SCH (08:06)
[2017-06-28] MEDS: ROPINIROLE HCL 1 MG TAB PO SCH ×2 (08:08→21:51)
[2017-06-28] MEDS: DOCUSATE SODIUM/SENNA 50/8.6MG TAB PO SCH ×2 (08:08→21:53)
[2017-06-28] MEDS: SERTRALINE HCL 100 MG TAB PO SCH (08:08)
[2017-06-28] MEDS: MAGNESIUM OXIDE 400 MG TAB PO SCH ×3 (08:09→21:52)
--- NOTE | 2017-06-28 09:59 | Hospitalist Progress Note ---
Hospitalist Progress Note Date of Service Jun 28, 2017. (Latanya Rodney ., PA-C) Subjective Pt evaluation today including: conversation w/ patient, physical exam, lab review, review of studies, review of inpatient medication list Patient laying in bed. No signs of acute distress. Alert/oriented x3. Does not recall why she came to the hospital. Denies any current complaints. Follows commands, answers questions appropriately Resident of [facility]. Does not ambulate- care dependent. Patient denies any fever, chills, sweats, lightheadedness, dizziness, vision changes, CP, palpitations, edema, SOB, wheezing, cough, abdominal pain, nausea, vomiting, diarrhea, urinary symptoms, melena, numbness/tingling, weakness, muscle/joint pain, anxiety/depression, active bleeding, or new skin discoloration/changes. (Latanya Rodney ., PA-C) Medications Current Inpatient Medications Medications (Trade) Dose Ordered Sig/Shiva Route Start Time Stop Time Status Last Admin Dose Admin Acetaminophen (Tylenol Tab) 650 mg Q4H PRN PO 06/27/17 12:30 07/27/17 12:29 Al Hydrox/Mg Hydrox/Simethicone (Maalox Max Susp) 15 ml Q4H PRN PO 06/27/17 12:30 07/27/17 12:29 Magnesium Hydroxide (Milk Of Magnesia Susp) 30 ml Q6H PRN PO 06/27/17 12:30 07/27/17 12:29 Polyethylene (Miralax Powder Packet) 17 gm DAILY PRN PO 06/27/17 12:30 07/27/17 12:29 Ondansetron HCl (Zofran Inj) 4 mg Q6H PRN IV 06/27/17 12:30 07/27/17 12:29 Clopidogrel Bisulfate (plAVix TAB) 75 mg DAILY PO 06/28/17 09:00 07/28/17 08:59 06/28/17 08:06 75 MG Fentanyl (Duragesic Patch) 50 mcg Q72H TD 06/27/17 14:46 07/11/17 14:45 06/27/17 14:51 50 MCG Gabapentin (Neurontin Cap) 900 mg BID@0900,1200 PO 06/28/17 09:00 07/28/17 08:59 06/28/17 08:05 900 MG Gabapentin (Neurontin Tab) 1,200 mg HS PO 06/27/17 21:00 07/27/17 20:59 06/27/17 20:19 1,200 MG Albuterol/ Ipratropium (Duoneb) 3 ml Q4R INH 06/27/17 12:30 07/27/17 12:29 06/28/17 07:04 3 ML Losartan Potassium (coZAAR TAB) 50 mg DAILY PO 06/28/17 09:00 07/28/17 08:59 06/28/17 08:05 50 MG Magnesium Oxide (Mag-Ox Tab) 400 mg TID PO 06/27/17 21:00 07/27/17 20:59 06/27/17 20:19 400 MG Oxycodone/ Acetaminophen (Percocet 5-325mg Tab) 1 tab QID PRN PO 06/27/17 12:30 07/11/17 12:29 06/27/17 14:50 1 TAB Ropinirole HCl (Requip Tab) 0.5 mg BID PO 06/27/17 21:00 07/27/17 20:59 06/28/17 08:08 0.5 MG Senna/Docusate Sodium (Senokot S Tab) 1 tab BID PO 06/27/17 21:00 07/27/17 20:59 06/28/17 08:08 1 TAB Sertraline HCl (Zoloft Tab) 100 mg QAM PO 06/28/17 09:00 07/28/17 08:59 06/28/17 08:08 100 MG Insulin Aspart (novoLOG ASPART) SLIDING SCALE G... ACHS SC 06/27/17 16:00 07/27/17 15:59 Ceftriaxone Sodium 1 gm/ Dextrose 50 ml @ 100 mls/hr Q24H IV 06/27/17 19:00 07/07/17 18:59 06/27/17 18:35 100 MLS/HR Glucose (Glucose 40% Gel) 15-30 GRAMS 15 GRAMS... UD PRN PO 06/27/17 14:45 07/27/17 14:44 Glucose (Glucose Chew Tab) 4-8 Tablets 4 Tabl... UD PRN PO 06/27/17 14:45 07/27/17 14:44 Dextrose (Dextrose 50% 50ML Syringe) 25-50ML OF 50% DW IV FOR... UD PRN IV 06/27/17 14:45 07/27/17 14:44 Glucagon (Glucagon Inj) 1 mg UD PRN SQ 06/27/17 14:45 07/27/17 14:44 Miscellaneous (Fentanyl Patch Remove & Waste) 1 ea Q3D N/A 06/27/17 14:45 07/27/17 14:44 06/27/17 14:53 1 EA Miscellaneous Information (Check Fentanyl Patch Placement) 1 ea QS N/A 06/27/17 16:00 07/27/17 15:59 06/28/17 08:04 1 EA (Latanya Rodney, CY) Objective Vital Signs Date Time Temp Pulse Resp B/P (MAP) Pulse Ox O2 Delivery O2 Flow Rate FiO2 06/28/17 08:31 99 Nasal Cannula 06/28/17 07:43 36.6 78 18 112/78 (89) 99 Nasal Cannula 06/28/17 07:06 82 16 93 Nasal Cannula 3.0 06/28/17 04:00 36.9 82 18 126/64 (84) 96 06/28/17 04:00 Nasal Cannula 2.0 06/28/17 03:15 99 16 97 Nasal Cannula 2.0 06/28/17 00:43 36.8 123 20 119/99 (106) 94 Nasal Cannula 2.0 06/27/17 23:59 Nasal Cannula 2.0 06/27/17 22:59 83 16 95 Nasal Cannula 2.0 06/27/17 20:04 94 Nasal Cannula 5.0 06/27/17 19:34 36.6 75 18 104/64 (77) 96 Nasal Cannula 6.0 06/27/17 19:15 76 18 100 Nasal Cannula 5.0 06/27/17 16:27 94 Nasal Cannula 5.0 06/27/17 15:43 37.5 78 18 94 5.0 06/27/17 15:20 76 18 95 Nasal Cannula 5.0 06/27/17 13:43 74 16 94/54 100 06/27/17 13:04 74 16 83/41 100 Nasal Cannula 5.0 06/27/17 12:27 77 06/27/17 12:18 81 100 Nasal Cannula 5.0 06/27/17 11:52 97 Nasal Cannula 2.0 06/27/17 11:25 87 156/123 97 Room Air 06/27/17 11:07 96 30 91 06/27/17 10:37 110 25 06/27/17 10:31 121/98 06/27/17 10:12 148/100 06/27/17 10:09 94 148/100 2 Nasal Cannula 06/27/17 10:07 92 21 94 06/27/17 10:02 104/78 (Latanya Rodney, PA-C) Physical Exam General Appearance: no apparent distress, + obese, + pertinent finding (2L O2 NC ) Eyes: PERRL ENT: hearing grossly normal Neck: supple, no JVD Respiratory/Chest: lungs clear, no respiratory distress, no accessory muscle use Cardiovascular: regular rate, rhythm Abdomen: normal bowel sounds, non tender, soft Extremities: no pedal edema, no calf tenderness, + pertinent finding (waffle boots ) Neurologic/Psychiatric: alert, oriented x 3, + pertinent finding (+tremor ) Skin: normal color, warm/dry, no rash (Latanya Rodney ., PA-C) Laboratory Results Last 24 Hours Test 06/27/17 09:49 06/27/17 09:50 06/27/17 09:58 06/27/17 11:00 Prothrombin Time 9.9 SECONDS Prothromb Time International Ratio 0.9 Activated Partial Thromboplast Time 29.4 SECONDS Partial Thromboplastin Ratio 1.1 White Blood Count 18.34 K/uL Red Blood Count 4.03 M/uL Hemoglobin 11.8 g/dL Hematocrit 41.0 % Mean Corpuscular Volume 101.7 fL Mean Corpuscular Hemoglobin 29.3 pg Mean Corpuscular Hemoglobin Concent 28.8 g/dl Platelet Count 290 K/uL Mean Platelet Volume 10.9 fL Neutrophils (%) (Auto) 75.1 % Lymphocytes (%) (Auto) 13.6 % Monocytes (%) (Auto) 8.3 % Eosinophils (%) (Auto) 2.7 % Basophils (%) (Auto) 0.1 % Neutrophils # (Auto) 13.76 K/uL Lymphocytes # (Auto) 2.50 K/uL Monocytes # (Auto) 1.53 K/uL Eosinophils # (Auto) 0.49 K/uL Basophils # (Auto) 0.02 K/uL RDW Standard Deviation 55.2 fL RDW Coefficient of Variation 14.9 % Immature Granulocyte % (Auto) 0.2 % Immature Granulocyte # (Auto) 0.04 K/uL Sodium Level 145 mmol/L Potassium Level 4.4 mmol/L Chloride Level 104 mmol/L Carbon Dioxide Level 39 mmol/L Anion Gap 2.0 mmol/L Blood Urea Nitrogen 27 mg/dl Creatinine 0.81 mg/dl Est Creatinine Clear Calc Drug Dose 81.9 ml/min Estimated GFR () 86.5 Estimated GFR (Non- 74.6 BUN/Creatinine Ratio 32.7 Random Glucose 42 mg/dl Calcium Level 8.9 mg/dl Magnesium Level 2.5 mg/dl Total Bilirubin 0.2 mg/dl Aspartate Amino Transf (AST/SGOT) 11 U/L Alanine Aminotransferase (ALT/SGPT) 12 U/L Alkaline Phosphatase 101 U/L Total Protein 6.4 gm/dl Albumin 2.6 gm/dl Globulin 3.8 gm/dl Albumin/Globulin Ratio 0.7 Bedside Lactic Acid Venous 0.81 mmol/L Urine Color YELLOW Urine Appearance CLOUDY Urine pH 5.5 Urine Specific Solomon 1.022 Urine Protein NEG Urine Glucose (UA) NEG Urine Ketones NEG Urine Occult Blood 1+ Urine Nitrite POS Urine Bilirubin NEG Urine Urobilinogen NEG Urine Leukocyte Esterase MODERATE Urine WBC (Auto) >30 /hpf Urine RBC (Auto) 0-4 /hpf Urine Hyaline Casts (Auto) 1-5 /lpf Urine Epithelial Cells (Auto) >30 /lpf Urine Bacteria (Auto) 4+ Urine Yeast (Auto) Test 06/27/17 11:24 06/27/17 15:57 06/27/17 20:13 06/28/17 05:37 Bedside Glucose 107 mg/dl 83 mg/dl 118 mg/dl White Blood Count 12.92 K/uL Red Blood Count 3.74 M/uL Hemoglobin 11.0 g/dL Hematocrit 37.4 % Mean Corpuscular Volume 100.0 fL Mean Corpuscular Hemoglobin 29.4 pg Mean Corpuscular Hemoglobin Concent 29.4 g/dl RDW Standard Deviation 53.4 fL RDW Coefficient of Variation 14.6 % Platelet Count 238 K/uL Mean Platelet Volume 10.9 fL Sodium Level 145 mmol/L Potassium Level 4.1 mmol/L Chloride Level 105 mmol/L Carbon Dioxide Level 37 mmol/L Anion Gap 3.0 mmol/L Blood Urea Nitrogen 24 mg/dl Creatinine 0.75 mg/dl Est Creatinine Clear Calc Drug Dose 88.2 ml/min Estimated GFR () 94.9 Estimated GFR (Non- 81.9 BUN/Creatinine Ratio 32.4 Random Glucose 63 mg/dl Calcium Level 8.5 mg/dl Magnesium Level 2.5 mg/dl Thyroid Stimulating Hormone (TSH) 1.010 uIu/ml Test 06/28/17 06:36 06/28/17 06:57 Bedside Glucose 63 mg/dl 100 mg/dl (Latanya Rodney, CY) Assessment and Plan 66 y/o F Hx Parkinson, CAD, HTN, HPL, morbid obesity with 02-dependence, dementia. Pt resides in a nursing facility and was transported to the hospital due to lethargy/AMS and a fever. On arrival to the ER her initial POC revealed a glucose of 45 - a value of 85 was reported by EMS. She was febrile and tachycardic in addition, although per an EKG, the tachycardia may have been related to atrial flutter or SVT. She reverted to sinus rhythm with fluid administration. The pt, owing to dementia, did not know why she was sent to the hospital and had no specific complaints. She was awake and alert at the time of admission. Lethargy/AMS w/ tachycardiac, leukocytosis and fever on admission- sepsis, ? secondary to UTI POA: - Leukocytosis- IMPROVING - UCx w/ >3 organisms of high count- Repeat UCx as recommended- pt incontinent/ refusing Palafox- if cannot repeat UCx will treat empirically based off UA results - IV Cefepime x1 dose in ED; admitted on IV Rocephin- started on 06/27 - CXR- ?PNA, pulmonary edema- no cough, sputum production, increased O2 demand Tachycardia, ?secondary to flutter vs SVT vs artifact due to Parkinson's disease : - Admitted to tele for cardiac monitoring- no acute events - Resolution in tachy w/ IVF - EKGs QAM and PRN w/ chest pain - TSH WNL Parkinson: Continue Requip 0.5 mg BID, Gabapentin 900 BID and 1200 mg HS T2DM w/ hypoglycemia: - Glucose 42 on arrival- treated w/ D50- RESOLVED - Lantus 35 U QAM held - BSG ACHS and sliding insulin scale HTN: Losartan 50 mg daily CAD, h/o TIA: Plavix 75 mg daily Hypomagnesemia w/ hypermagnesemia at 2.5: Held Mag-Ox 400 mg TID, follow mag level Chronic hypoxia secondary to obesity hypoventilation: - O2 protocol - DuoNebs Depression, anxiety: Zoloft 100 mg QAM DVT prophylaxis: Heparin SQ BID Code Status: LEVEL I, FULL Dispo: Resident of [facility]- CM consulted- likely transfer to med/surg this afternoon if no acute events on monitor and discharge within next 1-2 days (Latanya Rodney ., PA-C) I agree with PA assessment and plan and have seen and examined pt myself Resting comfortably in bed Noted to be in mild distress Likely admitted with UTI, awaiting cult, will need palafox Pt has persistent incontinence Leukocytosis improving at this time No fevers noted DC likely in next 24 hrs (Paulino Melendez, D.O.)
--- NOTE | 2017-06-28 10:37 | Clinical Documentation Query ---
CLINICAL DOCUMENTATION QUERY 66 y/o F Hx Parkinson, CAD, HTN, HPL, morbid obesity with 02-dependence, dementia. Pt resides in a nursing facility and was transported to the hospital due to lethargy/AMS and a fever. In your clinical opinion is this patient being managed for: ( X ) Sepsis ( ) Not Agree ( ) Other explanation of clinical findings (Please Explain) ( ) Unable to determine (Please Define) ( ) Need to Discuss The medical record reflects the following clinical findings, treatment, and risk factors. Clinical Indicators: WBC 18, fever, lethargic, tremors, tachycardia, tachypnea, current and chronic UTIs, possible pnx on CXR Treatment:Telemetry, rocephin IV, cefepime IV, O2, serial lab monitoring Risk Factors:Age, chronic UTI, snf resident, decreased mobility, obesity Please clarify and document your clinical opinion in the progress notes and discharge summary. Terms such as "probable", "suspected", "likely", "questionable", "possible", or "still to be ruled out" are acceptable. IF IN AGREEMENT, YOU MUST DOCUMENT ABOVE DIAGNOSTIC STATEMENT IN DAILY PROGRESS NOTES AND DISCHARGE SUMMARY. This document is not part of the patient's record. Thank You, Autumn Fam RN [phone]
[2017-06-28] MEDS: CEFTRIAXONE SOD INJ 1 GM in DEXTROSE 5% ADD-VANTAGE 50ML 50 ML IV SCH (18:05)
[2017-06-28] MEDS: GABAPENTIN 600 MG TAB PO SCH (21:51)
[2017-06-28] MEDS: HEPARIN SOD 5000 UNIT/0.5 ML CARP SQ SCH (21:55)
[2017-06-29] VITALS (12 sets, daily range): BP systolic 110–122; BP diastolic 80–82; PULSE 65–77; TEMP 36.4–37.4; O2SAT 86–99; Ht 170.2 cm; Wt 106.8 kg
[2017-06-29] MEDS: CHECK FENTANYL PATCH PLACEMENT SCH ×3 (00:15→13:30)
[2017-06-29] MEDS: ALBUT/IPRATROP 3MG/0.5MG NEB 3 ML VIAL INH SCH ×5 (03:32→23:13)
[2017-06-29 07:42] LABS: HEMATOCRIT 37.6 % (37-47); MEAN CELL VOLUME 98.7 fL (80-100); MEAN CORPUSCULAR HEMOGLOBIN 29.4 pg (25-34); MEAN CORPUSCULAR HGB CONC 29.8 g/dl (32-36); MEAN PLATELET VOLUME 10.9 fL (7.4-10.4); PLATELET COUNT 247 K/uL (130-400); RED BLOOD COUNT 3.81 M/uL (4.2-5.4); WHITE BLOOD COUNT 10.55 K/uL (4.8-10.8)
[2017-06-29 08:11] LABS: BUN/CREATININE RATIO 25.8 (10-20); CALCIUM 8.9 mg/dl (8.5-10.1); CREATININE 0.71 mg/dl (0.60-1.20); MAGNESIUM 2.2 mg/dl (1.8-2.4); POTASSIUM 4.2 mmol/L (3.5-5.1)
[2017-06-29] MEDS: INSULIN ASPART 100 UNITS/ML 3 ML PEN SC SCH ×4 (10:10→22:09)
[2017-06-29] MEDS: LOSARTAN POTASSIUM 50 MG TAB PO SCH (10:13)
[2017-06-29] MEDS: MAGNESIUM OXIDE 400 MG TAB PO SCH ×3 (10:14→22:06)
[2017-06-29] MEDS ORDERED: MAGN1TAB19 PO (10:16)
[2017-06-29] MEDS: CLOPIDOGREL BISULFATE 75 MG TAB PO SCH (10:16)
[2017-06-29] MEDS: ROPINIROLE HCL 1 MG TAB PO SCH ×2 (10:17→22:06)
[2017-06-29] MEDS ORDERED: CEPH-571 PO ×2 (10:17→12:06)
[2017-06-29] MEDS: DOCUSATE SODIUM/SENNA 50/8.6MG TAB PO SCH ×2 (10:20→22:06)
[2017-06-29] MEDS: SERTRALINE HCL 100 MG TAB PO SCH (10:21)
[2017-06-29] MEDS: HEPARIN SOD 5000 UNIT/0.5 ML CARP SQ SCH ×2 (10:24→22:06)
--- NOTE | 2017-06-29 10:24 | Discharge Instructions ---
Discharge Instructions Date of Service Jun 29, 2017. Admission Reason for Admission: Atrial Flutter, Uti Discharge Discharge Diagnosis / Problem: Altered mental status secondary to UTI Discharge Goals Goal(s): Decrease discomfort, Improve function, Improve disease control, Learn about illness, Diagnostic testing, Therapeutic intervention, Prevent Disease Progression Activity Recommendations Activity Level: Assistance Required . Additional Information Patient informed of condition: Yes Advance Directives: Yes DNR: No Level of Care: Skilled Communicable Disease: No Prognosis: Improving Oxygen at (LPM): by protocol Fernandez Catheter: No Instructions / Follow-Up Instructions / Follow-Up Lethargy/AMS w/ tachycardiac, leukocytosis and fever on admission- sepsis, likely secondary to UTI POA- IMPROVING: - Leukocytosis- IMPROVING - UCx w/ >3 organisms of high count- Repeat UCx as recommended- pt incontinent/ refusing Fernandez- could not obtain repeat UCx - BCx- NDTD - IV Cefepime x1 dose in ED; admitted on IV Rocephin- started on 06/27 -- Past UTI cultures reviewed- E.col, resistant to Levaquin/Cipro- discharge on Keflex 500 mg BID to complete 7 day treatment - CXR- ?PNA, pulmonary edema- no cough, sputum production, increased O2 demand Tachycardia, ?secondary to flutter vs SVT vs artifact due to Parkinson's disease - RESOLVED: - Admitted to tele for cardiac monitoring- no acute events - Resolution in tachy w/ IVF - EKGs QAM and PRN w/ chest pain - TSH WNL Parkinson: Continue Requip 0.5 mg BID, Gabapentin 900 BID and 1200 mg HS T2DM w/ hypoglycemic episodes: - Glucose 42 on arrival- treated w/ D50- RESOLVED - Lantus 35 U QAM held- discontinue at discharge and continue sliding insulin scale at [facility] - BSG ACHS and sliding insulin scale HTN: Losartan 50 mg daily CAD, h/o TIA: Plavix 75 mg daily Hypomagnesemia w/ hypermagnesemia at 2.5- RESOLVED: Held Mag-Ox 400 mg TID- changed dose to BID at discharge Chronic hypoxia secondary to obesity hypoventilation: - O2 protocol - DuoNebs Depression, anxiety: Zoloft 100 mg QAM DVT prophylaxis: Heparin SQ BID Code Status: LEVEL I, FULL FOLLOW-UPS: Follow-up with [facility] provider within 24-48 hours Please follow-up/keep all of your subspecialty appointments Current Hospital Diet Patient's current hospital diet: AHA Diet (Heart Healthy), Diabetes Type 2 Diet Discharge Diet Recommended Diet: AHA Diet (Heart Healthy), Diabetes Type 2 Diet Pending Studies Studies pending at discharge: no Physician Orders On Transfer Special Precautions: Fall precautions Dressing Changes: DESENEX FOR SKIN FOLDS. SACRAL PREVENTION DRESSING([employer].) WAFFLE BOOTS AND HEEL PREVENTION DRESSINGS IV Therapy: None Vital Signs: Routine POLST Discussion: with POLST completion Laboratory Results Hemoglobin A1c Test 04/10/17 04:40 Range/Units Estimated Average Glucose 114 mg/dl Hemoglobin A1c 5.6 4.5-5.6 % Lipid Panel Test 04/10/17 04:40 Range/Units Triglycerides Level 212 H 0-150 mg/dl Cholesterol Level 154 0-200 mg/dl HDL Cholesterol 36 mg/dl Cholesterol/HDL Ratio 4.3 LDL Cholesterol, Calculated 76 mg/dl Medical Emergencies . Who to Call and When: Medical Emergencies: If at any time you feel your situation is an emergency, please call 911 immediately. . Non-Emergent Contact Non-Emergency issues call your: Primary Care Provider Call Non-Emergent contact if: you have a fever, your pain is not controlled, your pain is worsening, your pain is unusual for you, your pain is concerning you, wound has increased drainage, wound has increased redness, wound has increased pain, you have any medication questions . . "Provider Documentation" section prepared by Latanya Rodney. . Core Measure Problem Core Measures: None
--- NOTE | 2017-06-29 10:28 | Discharge Summary ---
Discharge Summary Date of Service Jun 29, 2017. Discharge Summary Admission Date: Jun 27, 2017 at 13:04 Discharge Date: Jun 30, 2017 Discharge Disposition: long term facility Principal Diagnosis: Sepsis secondary to UTI Problems/Secondary Diagnoses: Tachycardia Parkinson T2DM w/ hypoglycemic episodes HTN CAD h/o TIA Hypomagnesemia w/ hypermagnesemia Chronic hypoxia secondary to obesity hypoventilation Depression anxiety Immunizations: Have You Had Influenza Vaccine: Yes Influenza Vaccine Date: Sep 10, 2011 History of Tetanus Vaccine?: Unknown History of Pneumococcal: Yes Pneumococcal Date: Sep 10, 2011 History of Hepatitis B Vaccine: Yes Procedures: CHEST ONE VIEW PORTABLE CLINICAL HISTORY: 66 years-old Female presenting with FEVER, . TECHNIQUE: Portable upright AP view of the chest was obtained. COMPARISON: 12/14/2015. FINDINGS: Cardiac silhouette mildly prominent, unchanged. Mildly low lung volumes with hypoventilatory changes. Prominence of pulmonary vasculature. Elevation of the right hemidiaphragm, unchanged. Interval increase in right basilar opacity. Suspected small right pleural effusion. Left lung and pleural space clear. Osseous structures normal. Upper abdomen normal. IMPRESSION: 1. Right basilar opacity suspected. This be better demonstrated with dedicated PA and lateral views. This could be consistent with a focal consolidation/pneumonia. 2. Suspected small right pleural effusion. 3. Mild cardiomegaly with pulmonary basilar prominence could suggest volume overload. Electronically signed by: Cl Frank M.D. 06/27/2017 9:10 AM Dictated Date/Time: 06/27/2017 9:09 AM The status of this report is Signed. Draft = Not yet reviewed or approved by Radiologist. Signed = Reviewed and approved by Radiologist. Medication Reconciliation New Medications: Cephalexin (Keflex) 500 Mg Cap 1 CAP PO BID for 4 Days, #8 CAP Changed Medications: Magnesium Oxide (Mg Supplement (Magnesium Oxide) 400 Mg Tab 400 MG PO BID for 30 Days (Changed from: Magnesium Oxide (Mag-Ox) 400 Mg Tab 400 Mg PO TID Ref 0) Continued Medications: Acetaminophen (Tylenol) 325 Mg Tab 650 MG PO Q4HR PRN, 0 Refills MODERATE TO SEVERE PAIN. MAY GIVE PO OR RECTALLY Acetaminophen (Tylenol) 325 Mg Tab 650 MG PO Q4HR PRN, 0 Refills TEMPERATURE >101F. DO NOT EXCEED 3 GM ACETAMINOPHEN IN 24 HOURS MAY GIVE PO OR RECTALLY Bisacodyl (Dulcolax) 10 Mg Sup 1 SUPP HI UD, SUP IF NO B.M. WITHIN 10 SHIFTS Cholecalciferol (Vitamin D 1000 Unit) 1,000 Unit Cap 5000 INTER.UNIT PO DAILY, CAP Clopidogrel (Plavix) 75 Mg Tab 75 MG PO DAILY, 0 Refills Dextrose (Diabetic Use) (Insta-Glucose) 77.4 % Gel 1 DOSE PO UD BLOOD GLUCOSE <60. MUST BE RESPONSIVE AND ABLE TO SAFELY SWALLOW Fentanyl (Duragesic) 50 Mcg Tdsy 50 MCG TD CQ72HR, PATCH Gabapentin (Neurontin) 600 Mg Tab 1200 MG PO HS, TAB Gabapentin (Neurontin) 300 Mg Cap 900 MG PO BID, CAP Glucagon (Glucagon Emergency Kit) 1 Mg Kit 1 DOSE IM UD BLOOD GLUCOSE <60 OR SYMPTOMATIC/UNRESPONSIVE Home O2 Therapy (Oxygen) Gas 2 LITERS NA DAILY PRN for KEEP O2 SATS UP TITRATE TO KEEP SATA >90% Insulin Lispro (Humalog) Inj Unknown Dose SC ACHS, VIAL SLIDING SCALE: BSG 0-150 = 0 UNITS BSG 151-200 = 6 UNITS BSG 201-250 = 8 UNITS BSG 251-300 = 10 UNITS BSG 301-350 = 12 UNITS BSG 351-400 = 14 UNITS BSG 401-450 = 16 UNITS BSG >451 CALL Ipratropium-Albuterol (Duoneb) 3 Ml Nebu 1 TREATMENT INH Q4H, INHA Losartan Potassium (Cozaar) 50 Mg Tab 50 MG PO DAILY, TAB Magnesium Hydroxide (Milk Of Magnesia) 30 Ml Susp 30 ML PO UD, ML IF NO B.M. IN 9 SHIFTS Multiple Vitamin (Multivitamin) 1 Tab Tab 1 TAB PO QAM, TAB Oxycodone/Acetaminophen 5MG/325MG (Percocet 5MG/325MG) Tab 1 TABLETS PO QID PRN for Pain, TAB PAIN Polyethylene Glycol 3350 (Miralax) 1 Pow Pow 17 GM PO DAILY, #255 GM Ropinirole (Requip) 0.5 Mg Tab 0.5 MG PO BID, TAB Sennosides-Docusate Sodium (Senna S) 1 Tab Tab 1 TAB PO BID Sertraline (Zoloft) 100 Mg Tab 100 MG PO QAM, TAB Sodium Phosphate/Biphosphate (Fleet Enema) Sridevi 1 EA HI UD, BTL IF DULCOLAX SUPP NOT EFFECTIVE Discontinued Medications: Insulin Glargine (Lantus) 100 Unit/Ml Inj 35 UNITS SQ QAM, VIAL Discharge Exam Review of Systems: Constitutional: No fever, No chills, No sweats, No weakness, No fatigue Respiratory: No cough, No sputum, No shortness of breath, No hemoptysis Cardiovascular: No chest pain, No edema, No palpitations Abdomen: No pain, No nausea, No vomiting, No diarrhea, No constipation Musculoskeletal: No joint pain, No muscle pain, No swelling, No calf pain Genitourinary - Female: + urinary incontinence, No dysuria, No urinary frequency, No urinary urgency, No urinary retention Neurologic: No weakness, No numbness/tingling Psychiatric: No depression symptoms, No anxiety Endocrine: No fatigue Hematologic / Lymphatic: No abnormal bleeding/bruising Integumentary: No rash, No itch, No new/changing skin lesions Physical Exam: General Appearance: no apparent distress, + obese Eyes: normal inspection, PERRL ENT: hearing grossly normal Neck: supple Respiratory/Chest: lungs clear, no respiratory distress, no accessory muscle use Cardiovascular: regular rate, rhythm Abdomen / GI: normal bowel sounds, non tender, soft Extremities: no calf tenderness, no pedal edema Neurologic/Psychiatric: alert, normal mood/affect, oriented x 3 Skin: normal color, warm/dry, no rash Hospital Course Admission H&P: 66 y/o F Hx Parkinson, CAD, HTN, HPL, morbid obesity with 02-dependence, dementia. Pt resides in a nursing facility and was transported to the hospital due to lethargy/AMS and a fever. On arrival to the ER her initial POC revealed a glucose of 45 - a value of 85 was reported by EMS. She was febrile and tachycardic in addition, although per an EKG, the tachycardia may have been related to atrial flutter or SVT. She reverted to sinus rhythm with fluid administration. The pt, owing to dementia, did not know why she was sent to the hospital and had no specific complaints. She was awake and alert at the time of admission. Physical Exam Vital Signs Date Time Temp Pulse Resp B/P (MAP) Pulse Ox O2 Delivery O2 Flow Rate FiO2 06/27/17 11:52 97 Nasal Cannula 2.0 06/27/17 11:25 87 156/123 97 Room Air 06/27/17 11:07 96 30 91 06/27/17 10:37 110 25 06/27/17 10:31 121/98 06/27/17 10:12 148/100 06/27/17 10:09 94 148/100 2 Nasal Cannula 06/27/17 10:07 92 21 94 06/27/17 10:02 104/78 06/27/17 09:37 97 23 94 06/27/17 09:35 97 22 94 Nasal Cannula 2.0 Venturi Mask 06/27/17 09:31 37.4 06/27/17 09:07 100 23 90 06/27/17 08:55 132 06/27/17 08:52 37.6 110/80 90 Nasal Cannula 2.0 06/27/17 08:50 90 Nasal Cannula 2.0 06/27/17 08:50 94 Nasal Cannula 2.0 06/27/17 08:43 110/80 General Appearance: WD/WN, + pertinent finding (Pleasant, obeses, elderly female - AAO x 1 - answers questions appropriately) Head: normocephalic Eyes: normal inspection ENT: normal ENT inspection, pharynx normal Neck: supple, + pertinent finding (Exam limited by habitus) Respiratory/Chest: chest non-tender, lungs clear, normal breath sounds Cardiovascular: regular rate, rhythm, no edema, no gallop, no murmur Abdomen/GI: normal bowel sounds, non tender, soft Back: normal inspection, no CVA tenderness Extremities/Musculoskelatal: normal inspection, no calf tenderness, normal capillary refill, no pedal edema, + pertinent finding (Lower extremity wasting apparent - LLE externally rotated - no pain with movement) Neurologic/Psych: solicitor patent [id number] nml as tested, no motor/sensory deficits, alert, + pertinent finding (AAO x 1.5) Skin: normal color, warm/dry Hospital Course: Lethargy/AMS w/ tachycardiac, leukocytosis and fever on admission- sepsis, likely secondary to UTI POA- IMPROVING: - Leukocytosis- IMPROVING - UCx w/ >3 organisms of high count- Repeat UCx as recommended- pt incontinent/ refusing Fernandez- could not obtain repeat UCx - BCx- NDTD - IV Cefepime x1 dose in ED; admitted on IV Rocephin- started on 06/27 -- Past UTI cultures reviewed- E.col, resistant to Levaquin/Cipro- discharge on Keflex 500 mg BID x5 days to complete 7 day treatment - CXR- ?PNA, pulmonary edema- no cough, sputum production, increased O2 demand Tachycardia, ?secondary to flutter vs SVT vs artifact due to Parkinson's disease - RESOLVED: - Admitted to [facility] for cardiac monitoring- no acute events - Resolution in tachy w/ IVF - EKGs QAM and PRN w/ chest pain - TSH WNL Parkinson: Continue Requip 0.5 mg BID, Gabapentin 900 BID and 1200 mg HS T2DM w/ hypoglycemic episodes: - Glucose 42 on arrival- treated w/ D50- RESOLVED - Lantus 35 U QAM held- discontinue at discharge and continue sliding insulin scale at [facility] - BSG ACHS and sliding insulin scale HTN: Losartan 50 mg daily CAD, h/o TIA: Plavix 75 mg daily Hypomagnesemia w/ hypermagnesemia at 2.5- RESOLVED: Held Mag-Ox 400 mg TID- changed dose to BID at discharge Chronic hypoxia secondary to obesity hypoventilation: - O2 protocol - Nida Depression, anxiety: Zoloft 100 mg QAM DVT prophylaxis: Heparin SQ BID Code Status: LEVEL I, FULL Dispo: Discharge to [facility] Total Time Spent: Greater than 30 minutes This includes examination of the patient, discharge planning, medication reconciliation, and communication with other providers. Discharge Instructions Please refer to the electronic Patient Visit Report (Discharge Instructions) for additional information. Follow-Up Follow-up with [facility] provider within 24-48 hours Please follow-up/keep all of your subspecialty appointments Additional Copies To [facility]
--- NOTE | 2017-06-29 12:05 | Hospitalist Progress Note ---
Hospitalist Progress Note Date of Service Jun 29, 2017. Subjective Pt evaluation today including: conversation w/ patient, physical exam, lab review, review of inpatient medication list Voiding: incontinence Patient feeling well this AM. Resting in bed. Eating and drinking OK. Alert and oriented. Patient denies any fever, chills, sweats, lightheadedness, dizziness, vision changes, CP, palpitations, edema, SOB, wheezing, cough, abdominal pain, nausea, vomiting, diarrhea, urinary symptoms, melena, numbness/tingling, weakness, muscle/joint pain, anxiety/depression, active bleeding, or new skin discoloration/changes. Medications Current Inpatient Medications Medications (Trade) Dose Ordered Sig/Shiva Route Start Time Stop Time Status Last Admin Dose Admin Acetaminophen (Tylenol Tab) 650 mg Q4H PRN PO 06/27/17 12:30 07/27/17 12:29 Al Hydrox/Mg Hydrox/Simethicone (Maalox Max Susp) 15 ml Q4H PRN PO 06/27/17 12:30 07/27/17 12:29 Magnesium Hydroxide (Milk Of Magnesia Susp) 30 ml Q6H PRN PO 06/27/17 12:30 07/27/17 12:29 Polyethylene (Miralax Powder Packet) 17 gm DAILY PRN PO 06/27/17 12:30 07/27/17 12:29 Ondansetron HCl (Zofran Inj) 4 mg Q6H PRN IV 06/27/17 12:30 07/27/17 12:29 Clopidogrel Bisulfate (plAVix TAB) 75 mg DAILY PO 06/28/17 09:00 07/28/17 08:59 06/29/17 10:16 75 MG Fentanyl (Duragesic Patch) 50 mcg Q72H TD 06/27/17 14:46 07/11/17 14:45 06/27/17 14:51 50 MCG Gabapentin (Neurontin Cap) 900 mg BID@0900,1200 PO 06/28/17 09:00 07/28/17 08:59 06/28/17 21:51 900 MG Gabapentin (Neurontin Tab) 1,200 mg HS PO 06/27/17 21:00 07/27/17 20:59 06/28/17 21:51 1,200 MG Albuterol/ Ipratropium (Duoneb) 3 ml Q4R INH 06/27/17 12:30 07/27/17 12:29 06/29/17 11:11 3 ML Losartan Potassium (coZAAR TAB) 50 mg DAILY PO 06/28/17 09:00 07/28/17 08:59 06/29/17 10:13 50 MG Magnesium Oxide (Mag-Ox Tab) 400 mg TID PO 06/27/17 21:00 07/27/17 20:59 06/29/17 10:14 400 MG Oxycodone/ Acetaminophen (Percocet 5-325mg Tab) 1 tab QID PRN PO 06/27/17 12:30 07/11/17 12:29 06/27/17 14:50 1 TAB Ropinirole HCl (Requip Tab) 0.5 mg BID PO 06/27/17 21:00 07/27/17 20:59 06/29/17 10:17 0.5 MG Senna/Docusate Sodium (Senokot S Tab) 1 tab BID PO 06/27/17 21:00 07/27/17 20:59 06/29/17 10:20 1 TAB Sertraline HCl (Zoloft Tab) 100 mg QAM PO 06/28/17 09:00 07/28/17 08:59 06/29/17 10:21 100 MG Insulin Aspart (novoLOG ASPART) SLIDING SCALE G... ACHS SC 06/27/17 16:00 07/27/17 15:59 Ceftriaxone Sodium 1 gm/ Dextrose 50 ml @ 100 mls/hr Q24H IV 06/27/17 19:00 07/07/17 18:59 06/28/17 18:05 100 MLS/HR Glucose (Glucose 40% Gel) 15-30 GRAMS 15 GRAMS... UD PRN PO 06/27/17 14:45 07/27/17 14:44 Glucose (Glucose Chew Tab) 4-8 Tablets 4 Tabl... UD PRN PO 06/27/17 14:45 07/27/17 14:44 Dextrose (Dextrose 50% 50ML Syringe) 25-50ML OF 50% DW IV FOR... UD PRN IV 06/27/17 14:45 07/27/17 14:44 Glucagon (Glucagon Inj) 1 mg UD PRN SQ 06/27/17 14:45 07/27/17 14:44 Miscellaneous (Fentanyl Patch Remove & Waste) 1 ea Q3D N/A 06/27/17 14:45 07/27/17 14:44 06/27/17 14:53 1 EA Miscellaneous Information (Check Fentanyl Patch Placement) 1 ea QS N/A 06/27/17 16:00 07/27/17 15:59 06/29/17 10:11 1 EA Heparin Sodium (Porcine) (Heparin Sq 5000 Unit/0.5ml) 5,000 unit Q12 SQ 06/28/17 21:00 07/28/17 20:59 06/29/17 10:24 5,000 UNIT Objective Vital Signs Date Time Temp Pulse Resp B/P (MAP) Pulse Ox O2 Delivery O2 Flow Rate FiO2 06/29/17 11:14 36.4 74 16 97 Nasal Cannula 06/29/17 11:11 74 16 97 Nasal Cannula 2.0 06/29/17 08:20 36.4 76 16 110/80 (90) 93 06/29/17 08:00 Nasal Cannula 2.0 06/29/17 07:17 77 16 95 Nasal Cannula 2.0 06/29/17 04:30 86 Room Air 06/29/17 03:32 72 16 97 Nasal Cannula 2.0 06/29/17 00:40 37.0 76 20 122/82 (95) 95 Nasal Cannula 2.0 06/29/17 00:15 Nasal Cannula 2.0 06/28/17 23:12 74 16 95 Nasal Cannula 2.0 06/28/17 20:49 36.5 76 18 128/72 (90) 97 Nasal Cannula 2.0 06/28/17 20:30 97 Nasal Cannula 2.0 06/28/17 19:12 78 16 97 Nasal Cannula 2.0 06/28/17 16:40 142/86 (104) 06/28/17 16:16 36.5 79 18 98 Nasal Cannula 2.0 06/28/17 16:00 Nasal Cannula 06/28/17 15:05 73 16 98 Nasal Cannula 2.0 Physical Exam General Appearance: no apparent distress, + obese Eyes: normal inspection, PERRL ENT: hearing grossly normal Neck: supple Respiratory/Chest: lungs clear, no respiratory distress, no accessory muscle use Cardiovascular: regular rate, rhythm Abdomen: normal bowel sounds, non tender, soft Extremities: no pedal edema, no calf tenderness, + pertinent finding (+waffle boots bilaterally ) Neurologic/Psychiatric: alert, normal mood/affect Skin: normal color, warm/dry, no rash Laboratory Results Last 24 Hours Test 06/28/17 16:39 06/28/17 20:52 06/29/17 07:03 06/29/17 07:06 Bedside Glucose 149 mg/dl 138 mg/dl 74 mg/dl White Blood Count 10.55 K/uL Red Blood Count 3.81 M/uL Hemoglobin 11.2 g/dL Hematocrit 37.6 % Mean Corpuscular Volume 98.7 fL Mean Corpuscular Hemoglobin 29.4 pg Mean Corpuscular Hemoglobin Concent 29.8 g/dl RDW Standard Deviation 53.3 fL RDW Coefficient of Variation 14.8 % Platelet Count 247 K/uL Mean Platelet Volume 10.9 fL Sodium Level 141 mmol/L Potassium Level 4.2 mmol/L Chloride Level 100 mmol/L Carbon Dioxide Level 39 mmol/L Anion Gap 2.0 mmol/L Blood Urea Nitrogen 18 mg/dl Creatinine 0.71 mg/dl Est Creatinine Clear Calc Drug Dose 95.2 ml/min Estimated GFR () 101.4 Estimated GFR (Non- 87.5 BUN/Creatinine Ratio 25.8 Random Glucose 66 mg/dl Calcium Level 8.9 mg/dl Magnesium Level 2.2 mg/dl Test 06/29/17 11:03 Bedside Glucose 175 mg/dl Assessment and Plan 66 y/o F Hx Parkinson, CAD, HTN, HPL, morbid obesity with 02-dependence, dementia. Pt resides in a nursing facility and was transported to the hospital due to lethargy/AMS and a fever. On arrival to the ER her initial POC revealed a glucose of 45 - a value of 85 was reported by EMS. She was febrile and tachycardic in addition, although per an EKG, the tachycardia may have been related to atrial flutter or SVT. She reverted to sinus rhythm with fluid administration. The pt, owing to dementia, did not know why she was sent to the hospital and had no specific complaints. She was awake and alert at the time of admission. Lethargy/AMS w/ tachycardiac, leukocytosis and fever on admission- sepsis, likely secondary to UTI POA- IMPROVING: - Leukocytosis- IMPROVING - UCx w/ >3 organisms of high count- Repeat UCx as recommended- pt incontinent/ refusing Fernandez- could not obtain repeat UCx - BCx- NDTD - IV Cefepime x1 dose in ED; admitted on IV Rocephin- started on 06/27 -- Past UTI cultures reviewed- E.col, resistant to Levaquin/Cipro- will discharge on Keflex 500 mg BID to complete 7 day treatment - CXR- ?PNA, pulmonary edema- no cough, sputum production, increased O2 demand Tachycardia, ?secondary to flutter vs SVT vs artifact due to Parkinson's disease - RESOLVED: - Admitted to tele for cardiac monitoring- no acute events - Resolution in tachy w/ IVF - EKGs QAM and PRN w/ chest pain - TSH WNL Parkinson: Continue Requip 0.5 mg BID, Gabapentin 900 BID and 1200 mg HS T2DM w/ hypoglycemic episodes: - Glucose 42 on arrival- treated w/ D50- RESOLVED - Lantus 35 U QAM held - BSG ACHS and sliding insulin scale HTN: Losartan 50 mg daily CAD, h/o TIA: Plavix 75 mg daily Hypomagnesemia w/ hypermagnesemia at 2.5- RESOLVED: Held Mag-Ox 400 mg TID- change dose to BID at discharge Chronic hypoxia secondary to obesity hypoventilation: - O2 protocol - Nida Depression, anxiety: Zoloft 100 mg QAM DVT prophylaxis: Heparin SQ BID Code Status: LEVEL I, FULL Dispo: Discharge to [facility] tomorrow
[2017-06-29] MEDS: GABAPENTIN 300 MG CAP PO SCH (12:06)
[2017-06-29] MEDS: GABAPENTIN 600 MG TAB PO SCH (22:00)
[2017-06-29] MEDS: CEFTRIAXONE SOD INJ 1 GM in DEXTROSE 5% ADD-VANTAGE 50ML 50 ML IV SCH (22:06)
[2017-06-30] MEDS: CHECK FENTANYL PATCH PLACEMENT SCH ×2 (00:05→08:00)
[2017-06-30 00:54] VITALS: BP 121/63; PULSE 72; TEMP 36.9; O2SAT 95
[2017-06-30] MEDS: ALBUT/IPRATROP 3MG/0.5MG NEB 3 ML VIAL INH SCH ×3 (03:23→11:20)
[2017-06-30 03:24] VITALS: PULSE 74; O2SAT 96
[2017-06-30] MEDS: INSULIN ASPART 100 UNITS/ML 3 ML PEN SC SCH (06:30)
[2017-06-30 07:02] VITALS: PULSE 69; O2SAT 98
[2017-06-30 07:45] VITALS: BP 145/59; PULSE 72; TEMP 36.8; O2SAT 100
[2017-06-30 07:50] LABS: HEMATOCRIT 38.8 % (37-47); MEAN CELL VOLUME 96.3 fL (80-100); MEAN CORPUSCULAR HEMOGLOBIN 29.5 pg (25-34); MEAN CORPUSCULAR HGB CONC 30.7 g/dl (32-36); PLATELET COUNT 251 K/uL (130-400); RED BLOOD COUNT 4.03 M/uL (4.2-5.4); WHITE BLOOD COUNT 9.67 K/uL (4.8-10.8)
[2017-06-30 08:16] LABS: BUN/CREATININE RATIO 21.7 (10-20); CALCIUM 8.8 mg/dl (8.5-10.1); CREATININE 0.8 mg/dl (0.60-1.20); MAGNESIUM 2.1 mg/dl (1.8-2.4); POTASSIUM 4.6 mmol/L (3.5-5.1)
[2017-06-30] MEDS: CLOPIDOGREL BISULFATE 75 MG TAB PO SCH (08:56)
[2017-06-30] MEDS: LOSARTAN POTASSIUM 50 MG TAB PO SCH (08:57)
[2017-06-30] MEDS: GABAPENTIN 300 MG CAP PO SCH ×2 (08:57→11:10)
[2017-06-30] MEDS: ROPINIROLE HCL 1 MG TAB PO SCH (08:58)
[2017-06-30] MEDS: DOCUSATE SODIUM/SENNA 50/8.6MG TAB PO SCH (08:58)
[2017-06-30] MEDS: SERTRALINE HCL 100 MG TAB PO SCH (08:59)
[2017-06-30] MEDS: MAGNESIUM OXIDE 400 MG TAB PO SCH (08:59)
[2017-06-30] MEDS: HEPARIN SOD 5000 UNIT/0.5 ML CARP SQ SCH (09:08)
[2017-06-30] MEDS ORDERED: CEPHALEXIN MONOHYDRATE 500 MG CAP PO ONE (10:15)
[2017-06-30 10:43] VITALS: BP 145/59; PULSE 72; TEMP 36.8; O2SAT 100
[2017-06-30 11:21] VITALS: PULSE 72; O2SAT 97
== END 2017-06-30 12:30 | DRG 871 ==
LOC: EDBD 08:37 → C.EDB 08:38 → ENRESERV 12:59 → CANRESERV 12:59 → C.2E 13:04 → EDBEDREQSVC 13:25 → ENRESERV 13:34 → C.MS4W 06-29 13:03
PROVIDERS: ADMIT Internal Medicine; ATTEND Hospitalist
DX: A41.9 Sepsis, unspecified organism (principal); J18.9 Pneumonia, unspecified organism; N39.0 Urinary tract infection, site not specified; E66.2 Morbid (severe) obesity with alveolar hypoventilation; N18.5 Chronic kidney disease, stage 5; I10 Essential (primary) hypertension; E78.5 Hyperlipidemia, unspecified; G20 Parkinson's disease; I25.10 Atherosclerotic heart disease of native coronary artery without angina pectoris; R09.02 Hypoxemia; E11.649 Type 2 diabetes mellitus with hypoglycemia without coma; E83.42 Hypomagnesemia; E83.41 Hypermagnesemia; I25.2 Old myocardial infarction; Z99.81 Dependence on supplemental oxygen; Z86.73 Personal history of transient ischemic attack (TIA), and cerebral infarction without residual deficits; Z79.4 Long term (current) use of insulin; Z86.718 Personal history of other venous thrombosis and embolism; Z83.3 Family history of diabetes mellitus; Z82.49 Family history of ischemic heart disease and other diseases of the circulatory system

== ENCOUNTER → 2017-07-03 | Outpatient (CLI) | payer OTHER ==
[~2017-07-03] MED LIST changes: +BISA10SU38 PR; +CEPH-571 PO; +DEXT40GE PO; -DLCS PR; -FENT25DI2 TD; -FLTE PR; +FNTTP50 TD; +GLGKIT IM; -INSDGI SC; +IPRASOL4 INH; +MAGN1TAB19 PO; -MAGN400T6 PO; -MAGNSUS5 PO; +MOML PO; +MULTTAB58 PO; +NRN/300 PO; +NRN/600 PO; -NRN300 PO; -NYST100098 TOP; +OXYC-57 PO; -OXYC7.5T78 PO; +SERT-234 PO; +SODIENE PR
[2017-07-03 08:38] LABS: BASO % 0.2 %; BASO ABS # 0.03 K/uL (0-0.2); COMPLETE YES; EOS % 8.1 %; HEMATOCRIT 37.3 % (37-47); IG% 0.3 %; LYMPH % 31.5 %; LYMPH ABS # 4.06 K/uL (1.2-3.4); MEAN CELL VOLUME 97.1 fL (80-100); MEAN CORPUSCULAR HEMOGLOBIN 30.7 pg (25-34); MEAN CORPUSCULAR HGB CONC 31.6 g/dl (32-36); MONO % 9.2 %; NEUT % 50.7 %; PLATELET COUNT 278 K/uL (130-400); RED BLOOD COUNT 3.84 M/uL (4.2-5.4); WHITE BLOOD COUNT 12.88 K/uL (4.8-10.8)
[2017-07-03 08:55] LABS: ALT/SGPT 16 U/L (12-78); BLOOD UREA NITROGEN 21 mg/dl (7-18); BUN/CREATININE RATIO 26.1 (10-20); CALCIUM 8.8 mg/dl (8.5-10.1); CARBON DIOXIDE 36 mmol/L (21-32); CHLORIDE 102 mmol/L (98-107); CREATININE 0.79 mg/dl (0.60-1.20); GLUCOSE 148 mg/dl (70-99); MAGNESIUM 1.7 mg/dl (1.8-2.4); POTASSIUM 4.2 mmol/L (3.5-5.1); SODIUM 140 mmol/L (136-145)
[2017-07-03 08:57] LABS: ALB/GLOB RATIO 0.7 (0.9-2); ALKALINE PHOSPHATASE 90 U/L (45-117); AST/SGOT 15 U/L (15-37)
== END ==
LOC: C.LABUPUNI 07:55
PROVIDERS: ATTEND Nurse Practitioner Family
DX: I10 Essential (primary) hypertension (principal); E11.9 Type 2 diabetes mellitus without complications

== ENCOUNTER → 2017-07-05 | Outpatient (CLI) | payer OTHER ==
[2017-07-05 10:19] LABS: BASO % 0.3 %; BASO ABS # 0.04 K/uL (0-0.2); COMPLETE YES; EOS % 7.9 %; HEMATOCRIT 42.9 % (37-47); IG% 0.4 %; LYMPH % 23.5 %; LYMPH ABS # 3.31 K/uL (1.2-3.4); MEAN CELL VOLUME 99.3 fL (80-100); MEAN CORPUSCULAR HEMOGLOBIN 29.4 pg (25-34); MEAN CORPUSCULAR HGB CONC 29.6 g/dl (32-36); MEAN PLATELET VOLUME 11.3 fL (7.4-10.4); NEUT % 59.9 %; PLATELET COUNT 286 K/uL (130-400); RED BLOOD COUNT 4.32 M/uL (4.2-5.4); WHITE BLOOD COUNT 14.11 K/uL (4.8-10.8)
== END ==
LOC: C.LABUPUNI 09:41
PROVIDERS: ATTEND Nurse Practitioner Family
DX: A41.9 Sepsis, unspecified organism (principal)

== ENCOUNTER → 2017-07-06 | Outpatient (CLI) | payer OTHER ==
[2017-07-06 09:19] LABS: BASO % 0.3 %; BASO ABS # 0.04 K/uL (0-0.2); COMPLETE YES; EOS % 7.4 %; HEMATOCRIT 42.1 % (37-47); IG% 0.3 %; LYMPH % 28.5 %; LYMPH ABS # 4.27 K/uL (1.2-3.4); MEAN CELL VOLUME 98.4 fL (80-100); MEAN CORPUSCULAR HEMOGLOBIN 30.1 pg (25-34); MEAN CORPUSCULAR HGB CONC 30.6 g/dl (32-36); MEAN PLATELET VOLUME 10.9 fL (7.4-10.4); MONO % 7.9 %; NEUT % 55.6 %; PLATELET COUNT 277 K/uL (130-400); RED BLOOD COUNT 4.28 M/uL (4.2-5.4); WHITE BLOOD COUNT 14.96 K/uL (4.8-10.8)
[2017-07-06 09:33] LABS: MANUAL MICROSCOPIC REQUIRED? YES; REVIEW REQ? NO; SULFASALICYLIC ACID POS (NEG); URINE APPEARANCE TURBID (CLEAR); URINE COLOR RED
[2017-07-06 09:34] LABS: URINE SPECIFIC GRAVITY 1.017 (1.000-1.030)
[2017-07-06 09:44] LABS: URINE BACTERIA 1+ (NEG)
[2017-07-06 09:45] LABS: URINE MUCUS PRESENT (NONE PRSENT)
== END ==
LOC: C.LABUPUNI 08:58
PROVIDERS: ATTEND Nurse Practitioner Family
DX: D72.829 Elevated white blood cell count, unspecified (principal)

== ENCOUNTER 2017-08-04 10:10 | Inpatient (IN) | payer OTHER ==
[2017-08-01 08:39] VITALS: BMI 34.0
--- NOTE | 2017-08-01 12:15 | PAT Medication Instructions ---
Service Date Aug 01, 2017. Current Home Medication List Acetaminophen (Tylenol), 650 MG PO Q4HR PRN Acetaminophen (Tylenol), 650 MG PO Q4HR PRN Bisacodyl (Dulcolax), 1 SUPP [place] UD Cholecalciferol (Vitamin D 1000 Unit), 5,000 INTER.UNIT PO DAILY Clopidogrel (Plavix), 75 MG PO DAILY Dextrose (Diabetic Use) (Insta-Glucose), 1 DOSE PO UD Fentanyl (Duragesic), 50 MCG TD CQ72HR Gabapentin (Neurontin), 1,200 MG PO HS Gabapentin (Neurontin), 900 MG PO BID Glucagon (Glucagon Emergency Kit), 1 DOSE IM UD Home O2 Therapy (Oxygen), 2 LITERS NA DAILY PRN for KEEP O2 SATS UP Insulin Lispro (Human) (Humalog), 1 DOSE SQ TIDM / HS Ipratropium-Albuterol (Duoneb), 1 TREATMENT INH Q4H Losartan Potassium (Cozaar), 50 MG PO DAILY Magnesium Hydroxide (Milk Of Magnesia), 30 ML PO UD Magnesium Oxide (Mg Supplement (Magnesium Oxide), 400 MG PO BID Nitrofurantoin Monohyd Macrocr (Macrobid), 100 MG PO BID Nystatin (Topical) (Nystatin), 1 APPLN TOP TID PRN for EXCORIATION Oxycodone/Acetaminophen 5MG/325MG (Percocet 5MG/325MG), 1 TABLETS PO QID PRN for Pain Polyethylene Glycol 3350 (Miralax), 17 GM PO DAILY Ropinirole (Requip), 0.5 MG PO BID Saccharomyces Boulardii (Probiotic), 250 MG PO BID Sennosides-Docusate Sodium (Senna S), 1 TAB PO BID Sertraline (Zoloft), 100 MG PO QAM Sodium Phosphate/Biphosphate (Fleet Enema), 1 EA [place] UD Tramadol (Ultram), 50 MG PO Q4H PRN for Pain Medication Instructions For Your Scheduled Surgery - Continue as directed: Home O2 Therapy (Oxygen), 2 LITERS NA DAILY PRN for KEEP O2 SATS UP Glucagon (Glucagon Emergency Kit), 1 DOSE IM UD Dextrose (Diabetic Use) (Insta-Glucose), 1 DOSE PO UD Fentanyl (Duragesic), 50 MCG TD CQ72HR -Check with your surgeon for instructions for: Clopidogrel (Plavix), 75 MG PO DAILY - Hold the following medications 24 hours prior to surgery: Nystatin (Topical) (Nystatin), 1 APPLN TOP TID PRN for EXCORIATION - Hold the following medications the night before surgery: Ropinirole (Requip), 0.5 MG PO BID - Hold the following medications the morning of surgery: Losartan Potassium (Cozaar), 50 MG PO DAILY Magnesium Hydroxide (Milk Of Magnesia), 30 ML PO UD Magnesium Oxide (Mg Supplement (Magnesium Oxide), 400 MG PO BID Polyethylene Glycol 3350 (Miralax), 17 GM PO DAILY Ropinirole (Requip), 0.5 MG PO BID Insulin Lispro (Human) (Humalog), 1 DOSE SQ TIDM / HS Sodium Phosphate/Biphosphate (Fleet Enema), 1 EA [place] UD Saccharomyces Boulardii (Probiotic), 250 MG PO BID Sennosides-Docusate Sodium (Senna S), 1 TAB PO BID Bisacodyl (Dulcolax), 1 SUPP [place] UD Cholecalciferol (Vitamin D 1000 Unit), 5,000 INTER.UNIT PO DAILY - Take the following medications the morning of surgery with a sip of water: Tramadol (Ultram), 50 MG PO Q4H PRN for Pain (if needed, can take up to four hours before surgery) Sertraline (Zoloft), 100 MG PO QAM Nitrofurantoin Monohyd Macrocr (Macrobid), 100 MG PO BID Gabapentin (Neurontin), 900 MG PO BID Acetaminophen (Tylenol), 650 MG PO Q4HR PRN (if needed, can take up to four hours before surgery) Oxycodone/Acetaminophen 5MG/325MG (Percocet 5MG/325MG), 1 TABLETS PO QID PRN for Pain (if needed, can take up to four hours before surgery) Ipratropium-Albuterol (Duoneb), 1 TREATMENT INH Q4H - Take the following medications as scheduled the night before surgery: Tramadol (Ultram), 50 MG PO Q4H PRN for Pain (if needed) Magnesium Oxide (Mg Supplement (Magnesium Oxide), 400 MG PO BID Insulin Lispro (Human) (Humalog), 1 DOSE SQ TIDM / HS Sodium Phosphate/Biphosphate (Fleet Enema), 1 EA [place] UD (if needed) Nitrofurantoin Monohyd Macrocr (Macrobid), 100 MG PO BID Gabapentin (Neurontin), 900 MG PO BID Gabapentin (Neurontin), 1,200 MG PO HS Acetaminophen (Tylenol), 650 MG PO Q4HR PRN (if needed) Oxycodone/Acetaminophen 5MG/325MG (Percocet 5MG/325MG), 1 TABLETS PO QID PRN for Pain (if needed) Saccharomyces Boulardii (Probiotic), 250 MG PO BID Sennosides-Docusate Sodium (Senna S), 1 TAB PO BID Bisacodyl (Dulcolax), 1 SUPP [place] UD (if needed) Ipratropium-Albuterol (Duoneb), 1 TREATMENT INH Q4H If you have any questions please call us at [phone] or [phone] or [phone]
--- NOTE | 2017-08-03 16:12 | HISTORY & PHYSICAL EXAMINATION ---
DATE OF ADMISSION: 08/04/2017 CHIEF COMPLAINT: Right elbow pain. HISTORY OF PRESENT ILLNESS: The patient is a 67-year-old female who presented from the [facility] after a fall from her bed sustained on 07/20/2017. The patient is not a community ambulator, but does utilize bilateral upper extremities for transfer. X-rays demonstrated a distal humerus fracture which will need open reduction internal fixation. The patient is scheduled for a right distal humerus ORIF. PAST MEDICAL HISTORY: Significant for a heart attack, hypertension, hypercholesterolemia, stf-[id number] diabetes, anxiety and depression, osteoarthritis, scoliosis, home oxygen at 4 liters. PAST SURGICAL HISTORY: Stent placement, appendectomy, open reduction internal fixation of the left ankle, left forearm open reduction internal fixation, tonsillectomy. SOCIAL HISTORY: Denies alcohol use, denies smoking or tobacco use. She denies IV or illegal drug use. FAMILY HISTORY: Mom has a history of heart attack. ALLERGIES: IODINE, AUGMENTIN, SUDAFED, PENICILLINS. MEDICATIONS: Tylenol 325 mg two tablets every 4 hours as needed for pain or temperature, vitamin D 5000 units, losartan 50 mg 1 tablet daily, Dulcolax as needed for constipation, DuoNeb treatment as needed for congestion or cough, Fleet enema as needed for constipation, gabapentin 600 mg 2 tabs at bedtime, glucagon as needed for hypoglycemia, Humalog 100 units per mL with sliding scale, Macrobid 100 mg 1 capsule 2 times a day for urinary tract infection, Percocet 5/325 one tablet every 6 hours as needed for pain, Plavix 75 mg once daily, ropinirole 0.5 mg 2 times daily, and Zoloft 50 mg once a day. REVIEW OF SYSTEMS: She denies headaches, fevers, chills, double vision, blurry vision, sore throat, cough, chest pain, nausea, vomiting, diarrhea, constipation, numbness or tingling, thoughts to harm herself or harm others or depression. She is positive for joint pain and joint stiffness of the right elbow. OBJECTIVE: GENERAL APPEARANCE: The patient is a 67-year-old female in the room lying down on the gurney. She is awake, alert and oriented x3. VITAL SIGNS: She is 5 feet 4 inches tall, 213 pounds, blood pressure is 112/70. HEENT: Extraocular movements are intact. Mucosa was moist. No septal deviation atraumatic, normocephalic. NECK: Supple with no lymphadenopathy, no JVD, no thyromegaly. HEART: Regular rate and rhythm. LUNGS: Clear to auscultation. ABDOMEN: Soft, nontender, nondistended. Normal bowel sounds, no hepatosplenomegaly. EXTREMITIES: Paying particular attention to the right elbow, she has diffuse tenderness over the elbow. She is unable to move her elbow due to pain. NEUROLOGIC: Cranial nerves II-XII are intact. Pulses were compared bilaterally and were equal. IMAGING: X-rays of the right elbow demonstrate a displaced comminuted extraarticular distal humerus fracture, no dislocation of the ulnohumeral joint. The fracture does not appear to extend into the articular surface. IMPRESSION: Right distal humerus fracture. PLAN: The patient is scheduled for a right ORIF of the distal humerus fracture. Risks and benefits were discussed with the patient and included but not limited to infection, DVT, pain, stiffness, need for revision surgeries, failure to relieve her symptoms, damage to blood vessels, damage to nerves, and anesthesia risks and . The patient understands these risks and wishes to proceed. All questions were answered to her satisfaction. NIMA
[~2017-08-04] VITALS: Ht 170.2 cm; Wt 100.2 kg
[~2017-08-04 10:10] MED LIST changes: +CEFAZOLIN 2000MG IV PUSH 10 ML IV SCH; -CEPH-571 PO; -HMLI SC; +INSU100I SQ; -MULTTAB58 PO; +NITR-5 PO; +NYST80OI TOP; +SACC250C11 PO; +SODIUM CHLORIDE 0.9% 1000ML 1,000 ML IV SCH; +TRAM-10 PO
[2017-08-04] MEDS ORDERED: BUPIVACAINE/EPINEPHRINE 0.25% 1:200,000 30 ML VIAL ONE (10:59)
[2017-08-04] MEDS ORDERED: DEXAMETHASONE SOD INJ 4 MG/ML VIAL ONE (11:00)
[2017-08-04 11:03] VITALS: BP 124/79; PULSE 117; TEMP 36.8; O2SAT 94; Ht 170.2 cm; Wt 100.2 kg
[2017-08-04] MEDS ORDERED: NURSING VERBAL MED ORDER ONE ×4 (12:10→21:30)
[2017-08-04] MEDS ORDERED: OXYCODONE/ACETAMINOPHEN 5-325 TAB ONE (12:32)
--- NOTE | 2017-08-04 12:59 | History & Physical Bridge Note ---
H&P Re-Evaluation Bridge Note: I have examined the patient, reviewed the History & Physical and in the interval since the performance of the History & Physical I have noted the following changes of clinical significance: No changes noted
[2017-08-04] MEDS ORDERED: VANCOMYCIN INJ 1,500 MG in SODIUM CHLORIDE 0.9% 500ML 500 ML IV SCH (13:15)
[2017-08-04] MEDS ORDERED: BUPIVACAINE 0.5 % 5 MG/1 ML MPF 30ML VIAL ONE (13:51)
[2017-08-04] MEDS ORDERED: ATROPINE SULFATE 0.1 MG/ML 5ML SYR IV PRN ×2 (14:15→21:00)
[2017-08-04] MEDS ORDERED: EpHEDrine SULFATE INJ 50 MG/ML AMP IV PRN (14:15)
[2017-08-04] MEDS ORDERED: ONDANSETRON INJ 2 MG/ML 2 ML VIAL IV PRN ×3 (14:15→21:00)
[2017-08-04] MEDS ORDERED: LABETALOL HCL IV 5 MG/ML 20ML IV PRN (14:15)
[2017-08-04] MEDS ORDERED: HYDROmorphone INJ 1 MG/ML SYR IV PRN (14:15)
[2017-08-04] MEDS ORDERED: MEPERIDINE HCL 25 MG/ML CARP IV PRN (14:15)
[2017-08-04] MEDS ORDERED: FENTANYL CITRATE INJ 50 MCG/1 ML 2 ML VIAL IV PRN ×2 (14:15→21:00)
[2017-08-04] MEDS ORDERED: MIDAZOLAM HCL 1 MG/ML 2ML VIAL ONE (14:33)
[2017-08-04] MEDS ORDERED: LIDOCAINE HCL 2% 2 ML VIAL (20MG/ML) ONE (14:34)
[2017-08-04] MEDS ORDERED: PROPOFOL IV EMULSION 10 MG/ML 20 ML VIAL IV ONE (14:34)
[2017-08-04] MEDS ORDERED: ROCURONIUM BROMIDE 10 MG/ML 5 ML VIAL IV ONE (14:34)
[2017-08-04] MEDS ORDERED: FENTANYL CITRATE INJ 50 MCG/1 ML 2 ML VIAL ONE ×3 (14:34→21:44)
[2017-08-04] MEDS ORDERED: GLYCOPYRROLATE INJ 0.2 MG/ML VIAL ONE (14:35)
[2017-08-04] MEDS ORDERED: NEOSTIGMINE METHYLSULFATE 5 MG/5 ML SYR ONE (14:35)
[2017-08-04] MEDS ORDERED: ONDANSETRON INJ 2 MG/ML 2 ML VIAL ONE (14:35)
[2017-08-04] MEDS ORDERED: PHENYLEPHRINE HCL INJ 10 MG/ML VIAL ONE (19:33)
--- NOTE | 2017-08-04 20:04 | [facility] Operative Report ---
Operative Report Operative Date Aug 04, 2017. Pre-Operative Diagnosis Right Distal Humerus Fracture Post-Operative Diagnosis Right Distal Humerus Fracture Procedure(s) Performed Open Reduction Internal Fixation Right Distal Humerus Fracture Surgeon Dr. Palencia Cancer Registry Coordinator Surgeon(s) Christo Cavanaugh PA-C Estimated Blood Loss 300 ml Findings As above Specimens None per surgeon Drains none Anesthesia Gen. Complication(s) None Disposition Recovery Room / PACU Indications 67-year-old female who is wheelchair bound. With fairly extensive past medical history. Sustained a fall with a distal humerus fracture. Given the amount of angulation and displacement I recommended open reduction and internal fixation. Description of Procedure Risks, benefits and alternatives to surgery including, but not limited to, infection DVT, pain, stiffness, need for revision surgery, failure to relieve all symptoms, damage to blood vessels, damage to nerves particularly the ulnar nerve, risk of anesthesia were discussed with the patient and they wished to proceed. The patient was identified. Laterality was confirmed and marked. The patient received a preoperative antibiotic as well as an interscalene block. They were transferred to the operating room and placed in the supine position and induced into general endotracheal anesthesia per the anesthesia staff. She was then transferred to the prone position all pressure points were well-padded. We confirmed that we're able to achieve proper visualization of the fracture under fluoroscopy. The arm was then prepped and draped in the usual standard manner with ChloraPrep. I made a posterior approach to the humerus sharply incising through the skin then utilizing Bovie electrocautery to achieve hemostasis. I approached the humerus through a triceps mobilization approach developing the medial and lateral window. I identified and mobilized the ulnar nerve. I then mobilized the triceps and dissected down to the fracture. The fracture was exceedingly distal and her bone was of very poor bone quality. I provisionally reduced the lateral side and held in place with a reduction clamp. I then positioned a Synthes distal humerus variable angle posterior lateral locking plate distally placed a nonlocking screw proximally and then locking screws distally. Some of the distal screws needed be exchanged as were a bit long. I then approached the medial side. The medial buttress of the metaphyseal flare was comminuted and devascularized. I held the arm out to length and provisionally pinned a Synthes medial humerus variable angle locking plate into position. I then placed a nonlocking screw proximally and then locking screws distally into the medial epicondyle. I confirmed screw length and ensured that we are not into the joint or into the olecranon fossa. I then placed additional locking screws proximally. I confirmed reduction on AP and lateral fluoroscopy views and was satisfied with the fixation given the poor bone quality in the distal nature of the fracture. The wound was thoroughly irrigated. The subcutaneous tissue was closed with interrupted 2-0 Vicryl suture. The skin was closed with nylon. A sterile dressing was applied. A sling was placed. All needle and sponge counts were correct at the end of the procedure. The patient was transferred to the PACU in stable condition without apparent complication. The PA-C was necessary for assistance with procedure for assistance in positioning, I attest to the content of the Intraoperative Record and any orders documented therein. Any exceptions are noted below.
--- NOTE | 2017-08-04 20:15 | DIAGNOSTIC IMAGING REPORT ---
R ELBOW MIN 3 VIEWS ROUTINE HISTORY: 67 years-old Female RT ORIF DISTAL FX status post ORIF of distal right humerus COMPARISON: None available TECHNIQUE: 2 spot fluoroscopic images of the right elbow were obtained utilizing 443.8 seconds fluoroscopy time FINDINGS: ORIF changes of the distal humerus are noted with lateral and medial plate and screw fixation of what appears to be a distal humeral fracture. Alignment is satisfactory. Expected postsurgical swelling and deep tissue air noted about the surgical site. No periprosthetic fracture or definite retained opaque foreign body. IMPRESSION: ORIF of the distal humerus as above without complication identified. Please see procedural report for further details. The above report was generated using voice recognition software. It may contain grammatical, syntax or spelling errors. Electronically signed by: Dereje Moya M.D. 08/04/2017 8:14 PM Dictated Date/Time: 08/04/2017 8:11 PM
[2017-08-04] MEDS ORDERED: NYSTATIN OINT 15 GM TUBE EXT PRN (20:45)
[2017-08-04] MEDS ORDERED: DEXTROSE PO SCH (20:45)
[2017-08-04] MEDS ORDERED: MoRPHine SULFATE 2 MG/ML CARP IV PRN (20:45)
[2017-08-04] MEDS ORDERED: NON-FORMULARY MEDICATION (Glucagon (Glucagon Emergency Kit) 1 DOSE) IM SCH (20:45)
[2017-08-04] MEDS ORDERED: MAGNESIUM HYDROXIDE SUSP 30 ML UDC PO PRN (20:45)
[2017-08-04] MEDS ORDERED: ALUMINUM/MAGNESIUM/SIMETH (MAALOX MAX) 30 ML UDC PO PRN (20:45)
[2017-08-04] MEDS ORDERED: OXYCODONE HCL IR 5 MG TAB (IMMEDIATE RELEASE) PO PRN (20:45)
[2017-08-04] MEDS ORDERED: SOD PHOSPHATE/SOD BIPHOSPHATE ENEMA 132 ML BTL PR PRN (20:45)
[2017-08-04] MEDS ORDERED: DiphenhydrAMINE HCL 50 MG/ML VIAL IV PRN (20:45)
[2017-08-04] MEDS ORDERED: BISACODYL 10 MG SUPP PR PRN (20:45)
[2017-08-04] MEDS ORDERED: [UNRECOGNIZED DRUG - OTHER] PO SCH (20:45)
[2017-08-04] MEDS ORDERED: NO NSAIDS SCH (20:45)
[2017-08-04] MEDS ORDERED: NovoLIN-R INSULIN PER UNIT CHARGE ONE (20:47)
[2017-08-04] MEDS ORDERED: INSULIN HUMAN REGULAR PER UNIT 6 UNITS in SYRINGE 0 ML IV STA (20:47)
[2017-08-04] MEDS: DOCUSATE SODIUM/SENNA 50/8.6MG TAB PO SCH (21:00)
[2017-08-04] MEDS: GABAPENTIN 600 MG TAB PO SCH (21:00)
[2017-08-04] MEDS: ROPINIROLE HCL 0.25 MG TAB PO SCH (21:00)
--- NOTE | 2017-08-04 22:08 | DIAGNOSTIC IMAGING REPORT ---
R ELBOW 2 VIEWS HISTORY: 67 years-old Female post op status post ORIF of distal humeral fracture on the right COMPARISON: Right elbow radiographs of same day at 5:02 PM TECHNIQUE: AP and crosstable lateral views of the right elbow FINDINGS: ORIF changes of the distal humerus are present with medial and lateral plate and screw fixation. Fracture distal humerus is noted with persistent fracture fragment displacement of 7 mm volarly seen on the lateral view. There is a screw noted interposed between the fracture fragment and the volar cortex of the distal humerus. Expected postsurgical soft tissue swelling and deep tissue air about the elbow at the surgical site. Vascular calcifications are noted. There is mild degenerative spurring about the elbow. Fine bony detail obscured by overlying casting material. IMPRESSION: 1. ORIF changes of the distal humerus with fracture fixation. 2. Distal humeral fracture fragment is displaced volarly 7 mm as above. The above report was generated using voice recognition software. It may contain grammatical, syntax or spelling errors. Electronically signed by: Dereje Moya M.D. 08/04/2017 10:07 PM Dictated Date/Time: 08/04/2017 10:03 PM
[2017-08-04] MEDS ORDERED: PHARMACY GLYCEMIC MGMT CONSULT PRN (22:29)
[2017-08-04] MEDS ORDERED: GLUCOSE 40% GEL 15 GM TUBE PO PRN (22:45)
[2017-08-04] MEDS ORDERED: GLUCOSE 10 TABS/TUBE PO PRN (22:45)
[2017-08-04] MEDS ORDERED: GLUCAGON FOR INJ 1 MG VIAL SQ PRN (22:45)
[2017-08-04] MEDS ORDERED: DEXTROSE 50% 50 ML SYR IV PRN (22:45)
[2017-08-04 22:48] VITALS: BP 102/64; PULSE 99; TEMP 36.7; O2SAT 98
--- NOTE | 2017-08-04 22:48 | Medical Consult ---
Consultation Date of Consultation: Aug 04, 2017. Attending Physician: Cl Palencia M.D. History of Present Illness 66 y/o F Hx Parkinson, CAD, HTN, HPL, morbid obesity with 02-dependence, dementia, AF. Pt resides in a nursing facility and suffered a fall resulting in a distal R humeral fracture. The pt make use of her upper extremities for ambulation with assistance. She is currently post-op ORIF. She appears to be recovering well and has no specific complaints although a history may be somewhat limited due to underlying dementia. Past Medical/Surgical History Medical Problems: (1) Change in mental status Status: Acute (2) Fall Status: Acute (3) Fracture of clavicle, left, closed Status: Acute (4) Hypoglycemia Status: Acute (5) Sepsis Status: Acute (6) UTI (urinary tract infection) Status: Acute Family History Diabetes mellitus Heart disease 1) Parkinson disease 2) Dementia 3) Morbid obesity 4) DM II 5) Chronic immobility 6) CAD - history of CO and remote stent 7) GERD 8) TIA 9) HTN 10) HPL 11) Pt had a run of AF or SVT during a hospital admission Social History [place] resident - care-dependent due to multiple morbidities, morbid obesity and dementia Smoking Status: Never Smoker Drug Use: none Marital Status: Housing Status: fpc Occupation Status: disabled Allergies Coded Allergies: Penicillins (Verified Allergy, Mild, PATIENT HAS TOLERATED CEFEPIME 02/02, 08/01/17) Amoxicillin (Verified Allergy, Unknown, unknown, 08/04/17) Clavulanic Acid (Verified Allergy, Unknown, unknown, 08/04/17) Iodine (Verified Allergy, Unknown, UNKNOWN, 08/01/17) Lactase (Verified Allergy, Unknown, ., 08/01/17) Pseudoephedrine (Verified Allergy, Unknown, UNKNOWN, 08/01/17) Current Inpatient Medications Current Inpatient Medications Medications (Trade) Dose Ordered Sig/Shiva Route Start Time Stop Time Status Last Admin Dose Admin Sodium Chloride 1,000 ml @ 15 mls/hr Q24H IV 08/04/17 06:00 08/05/17 05:59 Fentanyl Citrate (Fentanyl Inj) 25 mcg Q5M PRN IV 08/04/17 21:00 08/05/17 02:00 Ondansetron HCl (Zofran Inj) 4 mg ONE PRN IV 08/04/17 21:00 08/05/17 02:00 Atropine Sulfate (Atropine Sulfate 0.1MG/Ml Inj) 0.5 mg Q1M PRN IV 08/04/17 21:00 08/05/17 02:00 Bisacodyl (Dulcolax Supp) 10 mg UD PRN NJ 08/04/17 20:45 09/03/17 20:44 Cholecalciferol (Vitamin D Tab) 5,000 inter.unit DAILY PO 08/05/17 09:00 09/04/17 08:59 Fentanyl (Duragesic Patch) 50 mcg CQWK TD 08/04/17 20:45 08/18/17 20:44 UNV Gabapentin (Neurontin Cap) 900 mg BID PO 08/04/17 21:00 09/03/17 20:59 UNV Gabapentin (Neurontin Tab) 1,200 mg HS PO 08/04/17 21:00 09/03/17 20:59 UNV Albuterol/ Ipratropium (Duoneb) 3 ml Q4R INH 08/05/17 00:00 09/04/17 00:00 Losartan Potassium (coZAAR TAB) 50 mg DAILY PO 08/05/17 09:00 09/04/17 08:59 Magnesium Hydroxide (Milk Of Magnesia Susp) 30 ml UD PRN PO 08/04/17 20:45 09/03/17 20:44 Nitrofurantoin Macrocrystals (Macrobid Cap) 100 mg BID PO 08/04/17 21:00 08/14/17 20:59 UNV Nystatin (Mycostatin Oint) 1 appln TID PRN EXT 08/04/17 20:45 09/03/17 20:44 Ropinirole HCl (Requip Tab) 0.5 mg BID PO 08/04/17 21:00 09/03/17 20:59 Saccharomyces Boulardii (Florastor Cap) 250 mg BID PO 08/04/17 21:00 09/03/17 20:59 Senna/Docusate Sodium (Senokot S Tab) 1 tab BID PO 08/04/17 21:00 09/03/17 20:59 Sertraline HCl (Zoloft Tab) 150 mg QAM PO 08/05/17 09:00 09/04/17 08:59 Sodium Biphosphate/ Sodium Phosphate (Fleet Enema) 132 ml UD PRN NJ 08/04/17 20:45 09/03/17 20:44 Tramadol HCl (Ultram Tab) 50 mg Q4H PRN PO 08/04/17 20:45 09/03/17 20:44 Non-Formulary Medication (Magnesium Oxide (Mg Supplement (Magnesium Oxide)) 400 mg BID PO 08/04/17 21:00 09/03/17 20:59 UNV Non-Formulary Medication (Polyethylene Glycol 3350 (Miralax)) 17 gm DAILY PO 08/05/17 09:00 09/04/17 08:59 UNV Miscellaneous Information (Consult Glycemic Management Pharmacy) 1 ea UD PRN N/A 08/04/17 22:29 09/03/17 22:28 Potassium Chloride 10 meq/ Sodium Chloride 1,005 ml @ 100 mls/hr Q10H3M IV 08/04/17 23:00 09/03/17 22:59 Vancomycin HCl / Sodium Chloride 500 ml @ 200 mls/hr Q12H IV 08/04/17 20:45 08/04/17 23:14 UNV Miscellaneous Medication (No Nsaids) 1 ea UD N/A 08/04/17 20:45 09/03/17 20:44 Oxycodone HCl (Roxicodone Immediate Rel Tab) 1-2 TABS FOR PAIN 1 TABLET ... Q4H PRN PO 08/04/17 20:45 08/18/17 20:44 UNV Morphine Sulfate (MoRPHine SULFATE INJ) 1 mg Q1HWA PRN IV 08/04/17 20:45 08/18/17 20:44 UNV Acetaminophen (Tylenol Tab) 1,000 mg Q8H PO 08/04/17 20:45 09/03/17 20:44 UNV Diphenhydramine HCl (Benadryl Inj) 25 mg Q8H PRN IV 08/04/17 20:45 09/03/17 20:44 Al Hydrox/Mg Hydrox/Simethicone (Maalox Max Susp) 15 ml Q4H PRN PO 08/04/17 20:45 09/03/17 20:44 Multivitamins (Multivitamin Tab) 1 tab QAM PO 08/05/17 09:00 09/04/17 08:59 Ondansetron HCl (Zofran Inj) 4 mg Q6H PRN IV 08/04/17 20:45 09/03/17 20:44 Clopidogrel Bisulfate (plAVix TAB) 75 mg QAM PO 08/06/17 09:00 09/05/17 08:59 UNV Glucose (Glucose 40% Gel) 15-30 GRAMS 15 GRAMS... UD PRN PO 08/04/17 22:45 09/03/17 22:44 Glucose (Glucose Chew Tab) 4-8 Tablets 4 Tabl... UD PRN PO 08/04/17 22:45 09/03/17 22:44 Dextrose (Dextrose 50% 50ML Syringe) 25-50ML OF 50% DW IV FOR... UD PRN IV 08/04/17 22:45 09/03/17 22:44 Glucagon (Glucagon Inj) 1 mg UD PRN SQ 08/04/17 22:45 09/03/17 22:44 Review of Systems Constitutional: No fever, No chills, No sweats Eyes: No worsening of vision ENT: No hearing loss Respiratory: No cough, No sputum, No wheezing Cardiovascular: No chest pain Abdomen: No pain, No nausea, No vomiting Genitourinary - Female: No dysuria Neurologic: No memory loss, No paralysis, No weakness Psychiatric: No depression symptoms Endocrine: No fatigue Hematologic / Lymphatic: No abnormal bleeding/bruising Integumentary: No rash Physical Exam Date Time Temp Pulse Resp B/P (MAP) Pulse Ox O2 Delivery O2 Flow Rate FiO2 08/04/17 21:50 92 18 115/57 95 Nasal Cannula 4 08/04/17 21:40 96 18 108/71 95 Nasal Cannula 4 08/04/17 21:30 98 18 128/71 95 Nasal Cannula 4 08/04/17 21:20 98 18 98/87 08/04/17 21:10 93 18 116/70 95 Nasal Cannula 4 08/04/17 21:00 96 18 120/67 96 Nasal Cannula 4 08/04/17 20:50 94 18 136/73 96 Oxymask 10 08/04/17 20:43 94 18 146/63 96 Oxymask 10 08/04/17 20:34 36.9 98 18 134/98 96 Oxymask 10 08/04/17 14:55 76 16 113/64 (80) 95 Mask 8 08/04/17 11:03 36.8 117 20 124/79 (94) 94 Nasal Cannula 2 General Appearance: no apparent distress, + obese Head: normocephalic Eyes: normal inspection ENT: normal ENT inspection, pharynx normal Neck: supple Respiratory/Chest: chest non-tender, lungs clear, normal breath sounds Cardiovascular: regular rate, rhythm, no edema, no gallop Abdomen/GI: normal bowel sounds, non tender, soft Back: normal inspection, no CVA tenderness, no muscle spasm Extremities/Musculoskelatal: normal inspection, no calf tenderness, normal capillary refill Neurologic/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 Pt resides in a nursing facility and suffered a fall resulting in a distal R humeral fracture. The pt make use of her upper extremities for ambulation with assistance. She is currently post-op ORIF. She appears to be recovering well and has no specific complaints although a history may be somewhat limited due to underlying dementia. 1) Post ORIF - pt does not have any specific complaints post-op - pain control is adequate and 02 saturation is maintained. We will follow-up AM labs and would advise on maintaining gentle hydration overnight. 2) DM - POCs have been high post-op - appears as she was provided with Lantus which we agree with - cont sliding scale as ordered - Lantus dose can be increased as needed. 3) Chronic 02 -dependence - due to obesity and hypoventilation, pt may need overnight CPAP if saturations suffer owing to narcotic use and post anesthesia state - will ad oximetry to vitals. 4) CAD - no evidence of ACS - will restart Plavix - presumably she is Statin- intolerant 5) HTN - Cont Losartan in AM following post-op labs Toal time for this consult including review of labs, meds, imaging, records, ortho notes - discussion with pt - 34 min
[2017-08-04] MEDS ORDERED: FENTANYL PATCH REMOVE & WASTE SCH (22:59)
[2017-08-04] MEDS ORDERED: FENTANYL 50 MCG/HR TDSY TD SCH (23:00)
[2017-08-04] MEDS ORDERED: INSULIN GLARGINE SOLOSTAR 100 UNITS/ML 3 ML PEN SC ONE (23:00)
[2017-08-04 23:43] VITALS: BP 118/80; PULSE 105; TEMP 36.7; O2SAT 96
--- NOTE | 2017-08-04 23:50 | Anesthesiology Progress Note ---
Anesthesia Post Op Note Date & Time Aug 04, 2017 at 23:50 Vital Signs Pain Intensity: 4 Vital Signs Past 12 Hours Date Time Temp Pulse Resp B/P (MAP) Pulse Ox O2 Delivery O2 Flow Rate FiO2 08/04/17 23:45 Nasal Cannula 4.0 08/04/17 23:43 36.7 105 16 118/80 (93) 96 Nasal Cannula 4.0 08/04/17 23:41 96 Nasal Cannula 4.0 08/04/17 22:48 36.7 99 20 102/64 (77) 98 Nasal Cannula 4.0 08/04/17 21:50 92 18 115/57 95 Nasal Cannula 4 08/04/17 21:40 96 18 108/71 95 Nasal Cannula 4 08/04/17 21:30 98 18 128/71 95 Nasal Cannula 4 08/04/17 21:20 98 18 98/87 08/04/17 21:10 93 18 116/70 95 Nasal Cannula 4 08/04/17 21:00 96 18 120/67 96 Nasal Cannula 4 08/04/17 20:50 94 18 136/73 96 Oxymask 10 08/04/17 20:43 94 18 146/63 96 Oxymask 10 08/04/17 20:34 36.9 98 18 134/98 96 Oxymask 10 08/04/17 14:55 76 16 113/64 (80) 95 Mask 8 Notes Mental Status: alert / awake / arousable, participated in evaluation Pt Amnestic to Procedure: Yes Nausea / Vomiting: adequately controlled Pain: adequately controlled Airway Patency, RR, SpO2: stable & adequate BP & HR: stable & adequate Hydration State: stable & adequate Anesthetic Complications: no major complications apparent
[2017-08-04 23:57] VITALS: BP 140/70; PULSE 94; TEMP 36.3; O2SAT 99
[2017-08-05] VITALS (12 sets, daily range): BP systolic 92–138; BP diastolic 59–77; PULSE 73–108; TEMP 36.5–36.7; O2SAT 92–100
[2017-08-05] MEDS: POTASSIUM CHLORIDE INJ 10 MEQ in SODIUM CHLORIDE 0.9% 1000ML 1,000 ML IV SCH ×3 (00:13→21:27)
[2017-08-05] MEDS ORDERED: PNEUMOCOCCAL ADMINISTRATION CHARGE ONE (00:45)
[2017-08-05] MEDS ORDERED: INFLUENZA VACCINE HIGH DOSE 65+ 0.5 ML SYR IM. ONE (00:45)
[2017-08-05] MEDS ORDERED: PNEUMOCOCCAL POLYSACCHARIDES 25 MCG/0.5 ML VIAL/SYR IM. ONE (00:45)
[2017-08-05] MEDS ORDERED: INFLUENZA ADMINISTRATION CHARGE ONE (00:45)
[2017-08-05] MEDS: MAGNESIUM OXIDE 400 MG TAB PO SCH ×3 (01:19→21:29)
[2017-08-05] MEDS: VANCOMYCIN INJ 1,500 MG in SODIUM CHLORIDE 0.9% 500ML 500 ML IV SCH ×2 (01:19→14:11)
[2017-08-05] MEDS: ACETAMINOPHEN 500 MG TAB PO SCH ×4 (01:19→23:13)
[2017-08-05] MEDS: SACCHAROMYCES BOUL (FLORASTOR) 250 MG CAP PO SCH ×3 (01:19→21:30)
[2017-08-05] MEDS: NITROFURANTOIN MONOHYDRATE 100 MG CAP PO SCH ×3 (01:19→21:29)
[2017-08-05] MEDS: ALBUT/IPRATROP 3MG/0.5MG NEB 3 ML VIAL INH SCH ×7 (02:23→22:57)
[2017-08-05] MEDS ORDERED: INSULIN IV INFUSION PROTOCOL STA (04:28)
[2017-08-05] MEDS ORDERED: INSULIN PROTOCOL GOAL RANGE ONE (04:30)
[2017-08-05] MEDS ORDERED: MODERATE STRESS LEVEL ONE (04:30)
[2017-08-05] MEDS ORDERED: INSULIN HUMAN REGULAR PER UNIT 2.5 UNITS in SYRINGE 2.475 ML IV SCH (04:45)
[2017-08-05] MEDS: INSULIN REGULAR 250 UNITS in SODIUM CHLORIDE 0.9% 250ML 250 ML IV SCH ×3 (04:56→07:55)
[2017-08-05 06:19] LABS: HEMATOCRIT 32.9 % (37-47); MEAN CELL VOLUME 98.8 fL (80-100); MEAN CORPUSCULAR HEMOGLOBIN 29.4 pg (25-34); MEAN CORPUSCULAR HGB CONC 29.8 g/dl (32-36); MEAN PLATELET VOLUME 11.5 fL (7.4-10.4); PLATELET COUNT 288 K/uL (130-400); RED BLOOD COUNT 3.33 M/uL (4.2-5.4); WHITE BLOOD COUNT 20.54 K/uL (4.8-10.8)
[2017-08-05 06:46] LABS: CALCIUM 8.4 mg/dl (8.5-10.1); CREATININE 1.06 mg/dl (0.60-1.20)
[2017-08-05 07:58] LABS: URINE APPEARANCE CLOUDY (CLEAR); URINE COLOR DK YELLOW; URINE NITRITE NEG (NEG); URINE SPECIFIC GRAVITY 1.034 (1.000-1.030); UROBILINOGEN NEG (NEG)
[2017-08-05 08:03] LABS: MANUAL MICROSCOPIC REQUIRED? YES; REVIEW REQ? NO
[2017-08-05 08:04] LABS: URINE BILIRUBIN NEG (NEG)
[2017-08-05] MEDS: CHECK FENTANYL PATCH PLACEMENT SCH ×2 (08:09→16:00)
[2017-08-05] MEDS: LOSARTAN POTASSIUM 50 MG TAB PO SCH (08:18)
[2017-08-05] MEDS: POLYETHYLENE (MIRALAX) 17 GM PACK PO SCH (08:20)
[2017-08-05] MEDS: ROPINIROLE HCL 0.25 MG TAB PO SCH ×2 (08:20→21:31)
[2017-08-05] MEDS: DOCUSATE SODIUM/SENNA 50/8.6MG TAB PO SCH ×2 (08:20→21:32)
[2017-08-05] MEDS: SERTRALINE HCL 100 MG TAB PO SCH (08:21)
[2017-08-05] MEDS: CHOLECALCIFEROL 1000 INTER.UNIT TAB PO SCH (08:22)
[2017-08-05] MEDS: MULTIVITAMIN TAB PO SCH (08:22)
[2017-08-05] MEDS: GABAPENTIN 300 MG CAP PO SCH ×2 (08:24→14:11)
[2017-08-05 08:26] LABS: URINE BACTERIA 3+ (NEG); URINE WBC >30 /hpf (0-5)
[2017-08-05 08:27] LABS: URINE RBC 0-4 /hpf (0-4)
[2017-08-05 08:35] LABS: ESTIMATED AVERAGE GLUCOSE 151 mg/dl; HA1C FLAG Normal (Normal)
[2017-08-05] MEDS ORDERED: INSULIN ASPART 100 UNITS/ML 3 ML PEN SC SCH ×3 (09:00)
[2017-08-05] MEDS ORDERED: INSULIN GLARGINE SOLOSTAR 100 UNITS/ML 3 ML PEN SC SCH (09:00)
[2017-08-05] MEDS ORDERED: CLOPIDOGREL BISULFATE 75 MG TAB PO SCH (09:00)
--- NOTE | 2017-08-05 09:11 | Pharmacy Progress Note ---
Glycemic Control Intl Consult Date of Service Aug 05, 2017. Scope Glycemic Pharmacist consulted by CY Lombardi on 08/04/17 for glycemic control and to write orders per [facility] inpatient glycemic control protocol Objective Weight (Kilograms): 100.200 Accuchecks BSG (last 24hrs): Test 08/04/17 11:05 08/04/17 20:43 08/04/17 21:17 08/04/17 21:54 Bedside Glucose 203 mg/dl (70-90) 335 mg/dl (70-90) 333 mg/dl (70-90) 318 mg/dl (70-90) Test 08/04/17 22:36 08/05/17 00:15 08/05/17 04:01 08/05/17 05:25 Bedside Glucose 336 mg/dl (70-90) 337 mg/dl (70-90) 350 mg/dl (70-90) Random Glucose 283 mg/dl (70-99) Test 08/05/17 05:55 08/05/17 06:59 08/05/17 07:59 Bedside Glucose 259 mg/dl (70-90) 218 mg/dl (70-90) 156 mg/dl (70-90) Laboratory Data (last 24hrs) Test 08/05/17 05:25 Anion Gap 6.0 mmol/L BUN/Creatinine Ratio 30.0 Blood Urea Nitrogen 32 mg/dl Creatinine 1.06 mg/dl Hemoglobin A1c 6.9 % Potassium Level 5.0 mmol/L Sodium Level 139 mmol/L White Blood Count 20.54 K/uL HbA1c Test 08/05/17 05:25 Hemoglobin A1c 6.9 % (4.5-5.6) H Recent Pertinent Medications Outpatient Anti-diabetic Regimen: * Unknown - Per med rec: Humalog scale * Spoke with pt and she states her sister takes care of her diabetes and she takes "multiple insulins" * A1c = 6.7 % 08/05/17 The patient is currently receiving: * Basal insulin: Lantus 25 units X 1 * Insulin drip initiated per protocol @0500 Risk Factors for Insulin Resistance: * Steroids * Recent Surgery * Diet Assessment & Plan ASSESSMENT: * 67 yo T2DM F admitted s/p ORIF, POD #1 * Spoke with pt, sister takes care of her medications and is unable to provide home regimen * A1c 6.9% indicative of good glycemic control as outpatient * Glycemic service consulted overnight due to BSGs climbing into the 300's * After an insulin IV bolus, and aggressive SQ basal/bolus combination, patient started to climb further to 350 mg/dL * At 0500 it was decided to initiate patient on insulin drip per protocol * BSGs responded rapidly and corrected down to 156 mg/dL premeal and drip is now on hold * At this point I will discontinue insulin drip and maintain patient on wt- based basal/bolus approach * It will be helpful to retrieve home medication information from sister if/ when she visits * Goal for today will be to avoid hypoglycemia given her baseline dementia (may be unable to identify s/s of low BSG) PLAN FOR INPATIENT GLYCEMIC CONTROL: * Discontinue insulin drip * Basal insulin with LANTUS 10 units X 1 and continue wt based dosing BID based on BSG trend * Basal insulin will only be administered for BSGs consistently >140 mg/dL * Correctional Insulin with NOVOLOG per scale ACHS * Goal Range: Low 120 mg/dL - High 160 mg/dL * Correction Factor: 25 mg/dL/unit * Nutritional / Prandial insulin per carb ratio of 1 unit per 8 grams CHO consumed * Please note that the plan above was derived based on current level of insulin resistance and hospital stress. These recommendations are appropriate for inpatient admission only. Plan of care upon discharge will need to be reassessed to avoid potential outpatient hypo/hyperglycemia. Thank you.
--- NOTE | 2017-08-05 09:14 | Orthopedic Progress Note ---
Orthopedic Progress Note Date of Service Aug 05, 2017. Subjective Post OP Day: 1 Reports: pain controlled w PO medications, Denies: complaints, chest pain, SOB Additional Notes: Patient is answering nurse's questions appropriately and correctly when asked questions for alertness. Rates pain a 9/10. Objective N/V intact, splint C/D/I, capillary refill less than 2 sec., dressing C/D/I, A& O x3 RUE fingers are mobile. Patient is lying comfortably in bed. Date Time Temp Pulse Resp B/P (MAP) Pulse Ox O2 Delivery O2 Flow Rate FiO2 08/05/17 07:42 106 12 98 Nasal Cannula 3.0 08/05/17 07:02 36.5 87 17 125/77 (93) 99 Nasal Cannula 4.0 08/05/17 04:00 36.6 73 17 116/74 (88) 99 Nasal Cannula 4.0 08/05/17 02:23 108 12 100 Nasal Cannula 3.0 08/05/17 01:40 36.5 84 16 113/70 (84) 100 Nasal Cannula 4.0 08/05/17 00:40 36.7 92 18 133/76 (95) 97 Nasal Cannula 4.0 08/05/17 00:23 99 Nasal Cannula 4.0 08/04/17 23:57 36.3 94 18 140/70 (93) 99 Nasal Cannula 4.0 08/04/17 23:45 Nasal Cannula 4.0 08/04/17 23:43 36.7 105 16 118/80 (93) 96 Nasal Cannula 4.0 08/04/17 23:41 96 Nasal Cannula 4.0 08/04/17 22:48 36.7 99 20 102/64 (77) 98 Nasal Cannula 4.0 08/04/17 21:50 92 18 115/57 95 Nasal Cannula 4 08/04/17 21:40 96 18 108/71 95 Nasal Cannula 4 08/04/17 21:30 98 18 128/71 95 Nasal Cannula 4 08/04/17 21:20 98 18 98/87 08/04/17 21:10 93 18 116/70 95 Nasal Cannula 4 08/04/17 21:00 96 18 120/67 96 Nasal Cannula 4 08/04/17 20:50 94 18 136/73 96 Oxymask 10 08/04/17 20:43 94 18 146/63 96 Oxymask 10 08/04/17 20:34 36.9 98 18 134/98 96 Oxymask 10 08/04/17 14:55 76 16 113/64 (80) 95 Mask 8 08/04/17 11:03 36.8 117 20 124/79 (94) 94 Nasal Cannula 2 Laboratory Results 24 Hours: Test 08/05/17 05:25 Hematocrit 32.9 % Hemoglobin 9.8 g/dL Assessment & Plan Assessment: POD #1 s/p Open Reduction Internal Fixation Right Distal Humerus Fracture Plan: Continue posterior long arm splint at all times. ROM as tolerated with right hand/fingers. Pain control D/C planning-- back to [facility] when medically stable. Inhouse Planning Pain Management: Morphine, PO Tylenol, Oxy IR DVT Prophylaxis: TEDs, SCDs, other (Plavix to start tomorrow.) Discharge Planning Discharge Planning: long-term facility ([facility] when medically stable. )
[2017-08-05] MEDS: INSULIN ASPART 100 UNITS/ML 3 ML PEN SC SCH ×3 (13:02→21:41)
--- NOTE | 2017-08-05 14:29 | Progress Note ---
Subjective Date of Service: Aug 05, 2017. Subjective Pt evaluation today including: conversation w/ patient, physical exam, chart review, lab review, review of inpatient medication list Pain: None Voiding: palafox catheter in place Pt is seen and examined by me.Pt is s/o of urinary burning, frequency and urgency. Pt does have slight tachycardia. Pt denies cp, sob, dizziness, palpitation and loss of consciousness. Pt denies fever, chills, rigors and sweats. pt denies blurry vision and headache. Nurse reports that patient does report Urinary symptoms. Problem List Medical Problems: (1) Change in mental status Status: Acute (2) Fall Status: Acute (3) Fracture of clavicle, left, closed Status: Acute (4) Hypoglycemia Status: Acute (5) Sepsis Status: Acute (6) UTI (urinary tract infection) Status: Acute Review of Systems Constitutional: No fever, No chills, No sweats, No weakness, No fatigue Respiratory: No cough, No shortness of breath Cardiac: No chest pain Female : + dysuria, + urinary frequency Endo: + fatigue, No excessive thirst, No excessive urination Skin: No rash, No itch Medications Medications (Trade) Dose Ordered Sig/Shiva Route Start Time Stop Time Status Last Admin Dose Admin Insulin Human Regular (novoLIN-R U-100 PER UNIT) 6 units STK-MED ONCE .ROUTE 08/04/17 20:47 08/04/17 20:48 DC 08/04/17 21:25 6 UNITS Cholecalciferol (Vitamin D Tab) 5,000 inter.unit DAILY PO 08/05/17 09:00 09/04/17 08:59 08/05/17 08:22 5,000 INTER.UNIT Fentanyl (Duragesic Patch) 50 mcg Q72H TD 08/04/17 23:00 08/18/17 22:59 08/05/17 01:18 50 MCG Gabapentin (Neurontin Cap) 900 mg BID@0900,1400 PO 08/05/17 09:00 09/04/17 08:59 08/05/17 14:11 900 MG Albuterol/ Ipratropium (Duoneb) 3 ml Q4R INH 08/05/17 00:00 09/04/17 00:00 08/05/17 11:30 3 ML Losartan Potassium (coZAAR TAB) 50 mg DAILY PO 08/05/17 09:00 09/04/17 08:59 08/05/17 08:18 50 MG Nitrofurantoin Macrocrystals (Macrobid Cap) 100 mg BID PO 08/04/17 21:00 08/14/17 20:59 08/05/17 08:19 100 MG Ropinirole HCl (Requip Tab) 0.5 mg BID PO 08/04/17 21:00 09/03/17 20:59 08/05/17 08:20 0.5 MG Saccharomyces Boulardii (Florastor Cap) 250 mg BID PO 08/04/17 21:00 09/03/17 20:59 08/05/17 08:23 250 MG Senna/Docusate Sodium (Senokot S Tab) 1 tab BID PO 08/04/17 21:00 09/03/17 20:59 08/05/17 08:20 1 TAB Sertraline HCl (Zoloft Tab) 150 mg QAM PO 08/05/17 09:00 09/04/17 08:59 08/05/17 08:21 150 MG Magnesium Oxide (Mag-Ox Tab) 400 mg BID PO 08/04/17 21:00 09/03/17 20:59 08/05/17 08:19 400 MG Polyethylene (Miralax Powder Packet) 17 gm DAILY PO 08/05/17 09:00 09/04/17 08:59 08/05/17 08:20 17 GM Potassium Chloride 10 meq/ Sodium Chloride 1,005 ml @ 100 mls/hr Q10H3M IV 08/04/17 23:00 09/03/17 22:59 08/05/17 13:02 100 MLS/HR Vancomycin HCl 1500 mg/Sodium Chloride 530 ml @ 200 mls/hr Q12H IV 08/05/17 02:00 08/05/17 16:38 08/05/17 14:11 200 MLS/HR Acetaminophen (Tylenol Tab) 1,000 mg Q8H PO 08/04/17 23:00 09/03/17 22:59 08/05/17 07:14 1,000 MG Multivitamins (Multivitamin Tab) 1 tab QAM PO 08/05/17 09:00 09/04/17 08:59 08/05/17 08:22 1 TAB Fentanyl Citrate (Fentanyl Inj) 100 mcg STK-MED ONCE .ROUTE 08/04/17 21:44 08/04/17 21:45 DC 08/04/17 21:48 50 MCG Insulin Glargine (Lantus Solostar Pen) 25 units NOW ONCE SC 08/04/17 23:00 08/04/17 23:01 DC 08/05/17 01:15 25 UNITS Insulin Aspart (novoLOG ASPART) SLIDING SCALE Q4 SC 08/05/17 00:00 08/05/17 04:32 DC 08/05/17 01:14 9 UNITS Miscellaneous (Fentanyl Patch Remove & Waste) 1 ea Q72H N/A 08/04/17 22:59 09/03/17 22:58 08/04/17 22:59 1 EA Miscellaneous Information (Check Fentanyl Patch Placement) 1 ea QS N/A 08/05/17 08:00 09/04/17 07:59 08/05/17 08:09 1 EA Insulin Human Regular (Insulin IV Infusion Protocol) 1 ea NOW STAT N/A 08/05/17 04:28 08/05/17 04:37 DC 08/05/17 04:57 1 EA Miscellaneous (Insulin Protocol Goal Range (Other)) 1 ea ONE ONCE N/A 08/05/17 04:30 08/05/17 04:37 DC 08/05/17 04:57 1 EA Miscellaneous (Insulin Protocol Moderate Stress Level) 1 ea ONE ONCE N/A 08/05/17 04:30 08/05/17 04:37 DC 08/05/17 04:57 1 EA Insulin Human Regular 2.5 units/ Syringe 2.5 ml @ 30 mls/min TODAY@0445 IV 08/05/17 04:45 08/05/17 04:46 DC 08/05/17 04:55 30 MLS/MIN Insulin Human Regular 250 units/ Sodium Chloride 252.5 ml @ 0 mls/hr Q24H IV 08/05/17 05:00 08/05/17 08:46 DC 08/05/17 07:55 1.8 MLS/HR Insulin Aspart (novoLOG ASPART) SLIDING SCALE PCHS MI 08/05/17 09:00 08/05/17 09:30 DC 08/05/17 08:45 6 UNITS Insulin Aspart (novoLOG ASPART) SLIDING SCALE ACHS MI 08/05/17 12:00 09/04/17 11:59 08/05/17 13:02 5 UNITS Insulin Glargine (Lantus Solostar Pen) 10 units TODAY@0900 MI 08/05/17 09:00 08/05/17 09:01 DC 08/05/17 09:53 10 UNITS Objective Vital Signs Date Time Temp Pulse Resp B/P (MAP) Pulse Ox O2 Delivery O2 Flow Rate FiO2 08/05/17 07:55 Nasal Cannula 4.0 08/05/17 07:42 106 12 98 Nasal Cannula 3.0 08/05/17 07:02 36.5 87 17 125/77 (93) 99 Nasal Cannula 4.0 08/05/17 04:00 36.6 73 17 116/74 (88) 99 Nasal Cannula 4.0 08/05/17 02:23 108 12 100 Nasal Cannula 3.0 08/05/17 01:40 36.5 84 16 113/70 (84) 100 Nasal Cannula 4.0 08/05/17 00:40 36.7 92 18 133/76 (95) 97 Nasal Cannula 4.0 08/05/17 00:23 99 Nasal Cannula 4.0 08/04/17 23:57 36.3 94 18 140/70 (93) 99 Nasal Cannula 4.0 08/04/17 23:45 Nasal Cannula 4.0 08/04/17 23:43 36.7 105 16 118/80 (93) 96 Nasal Cannula 4.0 08/04/17 23:41 96 Nasal Cannula 4.0 08/04/17 22:48 36.7 99 20 102/64 (77) 98 Nasal Cannula 4.0 08/04/17 21:50 92 18 115/57 95 Nasal Cannula 4 08/04/17 21:40 96 18 108/71 95 Nasal Cannula 4 08/04/17 21:30 98 18 128/71 95 Nasal Cannula 4 08/04/17 21:20 98 18 98/87 08/04/17 21:10 93 18 116/70 95 Nasal Cannula 4 08/04/17 21:00 96 18 120/67 96 Nasal Cannula 4 08/04/17 20:50 94 18 136/73 96 Oxymask 10 08/04/17 20:43 94 18 146/63 96 Oxymask 10 08/04/17 20:34 36.9 98 18 134/98 96 Oxymask 10 08/04/17 14:55 76 16 113/64 (80) 95 Mask 8 Physical Exam General Appearance: no apparent distress Eyes: EOMI Neck: supple, no adenopathy Respiratory/Chest: lungs clear, no respiratory distress, no accessory muscle use Cardiovascular: regular rate, rhythm, no edema, no murmur, + tachycardia Abdomen: normal bowel sounds, non tender, soft Neurologic/Psychiatric: alert, normal mood/affect, oriented x 3 Skin: no rash Lymphatic: no adenopathy Laboratory Results Last 24 Hours Test 08/04/17 20:43 08/04/17 21:17 08/04/17 21:54 08/04/17 22:36 Bedside Glucose 335 mg/dl 333 mg/dl 318 mg/dl 336 mg/dl Test 08/05/17 00:15 08/05/17 04:01 08/05/17 05:25 08/05/17 05:30 Bedside Glucose 337 mg/dl 350 mg/dl White Blood Count 20.54 K/uL Red Blood Count 3.33 M/uL Hemoglobin 9.8 g/dL Hematocrit 32.9 % Mean Corpuscular Volume 98.8 fL Mean Corpuscular Hemoglobin 29.4 pg Mean Corpuscular Hemoglobin Concent 29.8 g/dl RDW Standard Deviation 53.1 fL RDW Coefficient of Variation 14.9 % Platelet Count 288 K/uL Mean Platelet Volume 11.5 fL Sodium Level 139 mmol/L Potassium Level 5.0 mmol/L Chloride Level 102 mmol/L Carbon Dioxide Level 31 mmol/L Anion Gap 6.0 mmol/L Blood Urea Nitrogen 32 mg/dl Creatinine 1.06 mg/dl Est Creatinine Clear Calc Drug Dose 60.9 ml/min Estimated GFR () 62.0 Estimated GFR (Non- 53.5 BUN/Creatinine Ratio 30.0 Random Glucose 283 mg/dl Estimated Average Glucose 151 mg/dl Hemoglobin A1c 6.9 % Calcium Level 8.4 mg/dl Hepatitis C Antibody Screen NEG Urine Color DK YELLOW Urine Appearance CLOUDY Urine pH 5.0 Urine Specific [place] 1.034 Urine Protein NEG Urine Glucose (UA) NEG Urine Ketones TRACE Urine Occult Blood NEG Urine Nitrite NEG Urine Bilirubin NEG Urine Urobilinogen NEG Urine Leukocyte Esterase MODERATE Urine Hyaline Casts (Auto) /lpf Urine RBC 0-4 /hpf Urine WBC >30 /hpf Urine Epithelial Cells >30 /lpf Urine Renal Epithelial Cells /lpf Urine Bacteria 3+ Urine Pathogenic Casts /lpf Urine Yeast (Auto) Test 08/05/17 05:55 08/05/17 06:59 08/05/17 07:59 08/05/17 11:58 Bedside Glucose 259 mg/dl 218 mg/dl 156 mg/dl 183 mg/dl Assessment and Plan 66 y/o F Hx Parkinson, CAD, HTN, HPL, morbid obesity with 02-dependence, dementia. Pt resides in a nursing facility and suffered a fall resulting in a distal R humeral fracture. The pt make use of her upper extremities for ambulation with assistance. She is currently post-op ORIF. She appears to be recovering well and has no specific complaints although a history may be somewhat limited due to underlying dementia. Post ORIF - pt does not have any specific complaints post-op - pain control is adequate and 02 saturation is maintained. management and treatment as per ortho , per them okay to discharge. UTI: UA is positive and patient is symptomatic. We look through patient past urine culture reports from 07/08/17 and positive for ESBL. We discuss the antibiotic resisitant with our pharmacist and came up with ertapenem 1g daily. We will follow urine culture, and based on the culture may decerlate the therapy. DM - management and treatment as per pharmacy to inpatient goal of BG<180 Chronic 02 -dependence - due to obesity and hypoventilation, pt may need overnight CPAP if saturations suffer owing to narcotic use and post anesthesia state CAD - no evidence of ACS - will restart Plavix - presumably she is Statin- intolerant HTN - Cont Losartan Continued [facility] stay due to: multiple IV medications needed Discharge planning: assisted facility
[2017-08-05] MEDS: ERTAPENEM IV 1 GM in SODIUM CHLOR 0.9% AD-VAN 50ML IV SCH (14:46)
[2017-08-05] MEDS: TRAMADOL HCL 50 MG TAB PO PRN ×2 (16:30→22:24)
[2017-08-05] MEDS: GABAPENTIN 600 MG TAB PO SCH (21:31)
[2017-08-05] MEDS: INSULIN GLARGINE SOLOSTAR 100 UNITS/ML 3 ML PEN SC SCH (21:44)
[2017-08-06 00:25] VITALS: BP 120/68; PULSE 105; TEMP 36.7; O2SAT 99
[2017-08-06] MEDS: ALBUT/IPRATROP 3MG/0.5MG NEB 3 ML VIAL INH SCH ×3 (03:45→11:15)
[2017-08-06 03:46] VITALS: PULSE 85; O2SAT 98
[2017-08-06 05:49] LABS: HEMATOCRIT 25.7 % (37-47); MEAN CELL VOLUME 99.2 fL (80-100); MEAN CORPUSCULAR HEMOGLOBIN 29.3 pg (25-34); MEAN CORPUSCULAR HGB CONC 29.6 g/dl (32-36); MEAN PLATELET VOLUME 11.2 fL (7.4-10.4); PLATELET COUNT 219 K/uL (130-400); RED BLOOD COUNT 2.59 M/uL (4.2-5.4); WHITE BLOOD COUNT 14.19 K/uL (4.8-10.8)
[2017-08-06 06:28] LABS: BUN/CREATININE RATIO 36.4 (10-20); CREATININE 0.61 mg/dl (0.60-1.20); POTASSIUM 4.5 mmol/L (3.5-5.1)
[2017-08-06] MEDS: POTASSIUM CHLORIDE INJ 10 MEQ in SODIUM CHLORIDE 0.9% 1000ML 1,000 ML IV SCH (06:38)
[2017-08-06] MEDS: ACETAMINOPHEN 500 MG TAB PO SCH (06:39)
[2017-08-06 07:20] VITALS: PULSE 68; O2SAT 100
[2017-08-06 07:45] VITALS: BP 137/73; PULSE 76; TEMP 36.5; O2SAT 100
[2017-08-06] MEDS: CHECK FENTANYL PATCH PLACEMENT SCH ×2 (08:00)
[2017-08-06] MEDS ORDERED: CLOPIDOGREL BISULFATE 75 MG TAB PO SCH (09:00)
[2017-08-06] MEDS: NITROFURANTOIN MONOHYDRATE 100 MG CAP PO SCH (09:02)
[2017-08-06] MEDS: SACCHAROMYCES BOUL (FLORASTOR) 250 MG CAP PO SCH (09:02)
[2017-08-06] MEDS: LOSARTAN POTASSIUM 50 MG TAB PO SCH (09:02)
[2017-08-06] MEDS: MAGNESIUM OXIDE 400 MG TAB PO SCH (09:03)
[2017-08-06] MEDS: POLYETHYLENE (MIRALAX) 17 GM PACK PO SCH (09:03)
[2017-08-06] MEDS: GABAPENTIN 300 MG CAP PO SCH ×2 (09:04→13:23)
[2017-08-06] MEDS: MULTIVITAMIN TAB PO SCH (09:04)
[2017-08-06] MEDS: CHOLECALCIFEROL 1000 INTER.UNIT TAB PO SCH (09:05)
[2017-08-06] MEDS: ROPINIROLE HCL 0.25 MG TAB PO SCH (09:05)
[2017-08-06] MEDS: DOCUSATE SODIUM/SENNA 50/8.6MG TAB PO SCH (09:05)
[2017-08-06] MEDS: SERTRALINE HCL 100 MG TAB PO SCH (09:06)
[2017-08-06] MEDS: INSULIN ASPART 100 UNITS/ML 3 ML PEN SC SCH ×2 (09:23→12:31)
[2017-08-06] MEDS: INSULIN GLARGINE SOLOSTAR 100 UNITS/ML 3 ML PEN SC SCH (09:24)
--- NOTE | 2017-08-06 09:41 | Pharmacy Progress Note ---
Glycemic: Assessment & Plan Date of Service Aug 06, 2017. Assessment & Plan Outpatient Anti-diabetic Regimen: * Per med rec: Humalog scale * Searched records and found scanned nursing facility documents from June noting Lantus 35 units daily in addition to Humalog * This was discontinued in June when she was discharged because of significant fasting hypoglycemia * A1c = 6.7 % 08/05/17 ASSESSMENT: * BSGs over the past 24 hours have ranged 156-262 mg/dL * Knowing patient's Lantus was discontinued last admission sheds more light on her BSG management * I assume patient may require some basal insulin here due to stress/infection? * Will continue with wt based stress of 2 Novolog and hope BSGs remain stable through the evening * Plan to continue with Lantus dosing and hold of BSG <120 PLAN FOR INPATIENT GLYCEMIC CONTROL: * Basal insulin with LANTUS BID per scale * BSG <120 - hold * BSG 120-180 - 10 units * BSG >180 - 15 units * Correctional Insulin with NOVOLOG per scale ACHS * Goal Range: Low 120 mg/dL - High 160 mg/dL * Correction Factor: 25 mg/dL/unit * Nutritional / Prandial insulin per carb ratio of 1 unit per 8 grams CHO consumed * Please note that the plan above was derived based on current level of insulin resistance and hospital stress. These recommendations are appropriate for inpatient admission only. Plan of care upon discharge will need to be reassessed to avoid potential outpatient hypo/hyperglycemia. Thank you.
--- NOTE | 2017-08-06 10:00 | Orthopedic Progress Note ---
Orthopedic Progress Note Date of Service Aug 06, 2017. Subjective Post OP Day: 2 Reports: pain controlled w PO medications, Denies: chest pain, SOB, nausea / vomiting, light headedness Additional Notes: States her right elbow is driving her crazy. Pain controlled overall. Objective N/V intact, splint C/D/I, capillary refill less than 2 sec., dressing C/D/I Patient is alert. RUE fingers are mobile. Sensation is intact distally RUE with light touch. Date Time Temp Pulse Resp B/P (MAP) Pulse Ox O2 Delivery O2 Flow Rate FiO2 08/06/17 07:45 36.5 76 18 137/73 (94) 100 Nasal Cannula 3.0 08/06/17 07:20 68 14 100 Nasal Cannula 3.0 08/06/17 03:46 85 14 98 Nasal Cannula 3.0 08/06/17 00:30 Nasal Cannula 3.0 08/06/17 00:25 36.7 105 16 120/68 (85) 99 Nasal Cannula 3.0 08/05/17 22:59 104 14 98 Nasal Cannula 3.0 08/05/17 19:54 95 14 92 Nasal Cannula 3.0 08/05/17 16:30 Nasal Cannula 3.0 08/05/17 15:15 84 14 100 Nasal Cannula 3.0 08/05/17 15:13 36.7 84 16 138/72 (94) 100 Nasal Cannula 3.0 08/05/17 11:00 36.6 88 16 92/59 (70) 100 3.0 Laboratory Results 24 Hours: Test 08/06/17 05:26 Hematocrit 25.7 % Hemoglobin 7.6 g/dL Assessment & Plan Assessment: POD #2 s/p Open Reduction Internal Fixation Right Distal Humerus Fracture Plan: Continue posterior long arm splint at all times. ROM as tolerated with right hand/fingers. Pain control D/C planning-- back to [facility] when medically stable. When antibiotic choice is made for her UTI, she will be d/c'd to [facility]. Inhouse Planning Pain Management: Morphine, PO Tylenol, Oxy IR DVT Prophylaxis: TEDs, SCDs, other (Plavix to start tomorrow.) Discharge Planning Discharge Planning: penitentiary facility ([facility] when medically stable. )
--- NOTE | 2017-08-06 10:03 | Discharge Instructions ---
Discharge Instructions Date of Service Aug 06, 2017. Admission Reason for Admission: Right Distal Humerus Fracture Discharge Discharge Diagnosis / Problem: Right distal humerus fracture Discharge Goals Goal(s): Decrease discomfort, Improve function, Improve disease control Activity Recommendations Activity Level: Up Ad Taty Weightbearing Status: Right non-weightbearing . Additional Information Patient informed of condition: Yes Advance Directives: Yes DNR: No Level of Care: Skilled Communicable Disease: No Prognosis: Stable Fernandez Catheter: Yes Instructions / Follow-Up Instructions / Follow-Up ACTIVITY RECOMMENDATIONS: * Avoid lifting anything heavier than a medium water glass until your first post operative visit. SPECIAL CARE INSTRUCTIONS: * Your bandage should be left in place until your first post operative visit in 2 weeks. * Some drainage onto the dressing may occur. This is normal. * If the bandage feels excessively tight, you may loosen the elastic bandage. Then call the physician's office for further instructions. * If possible, keep your hand elevated above the level of your heart for the first 2 post operative days. You may use a sling if necessary. * You should move your fingers regularly (50-100 motions per hour) unless otherwise instructed. SPECIAL PRECAUTIONS: * If you notice increased drainage, fever over 101 degrees F. or severe, unremitting pain, call your physician/office at . * You may have been prescribed pain medication. If you experience nausea and/or skin rash, discontinue this medication and contact our office for an alternative medication. FOLLOW UP VISIT: If appointment is not already scheduled: Please call [facility] to make a follow-up appointment for 2 weeks after your surgery at . Current Hospital Diet Patient's current hospital diet: Diabetes Type 2 Diet Discharge Diet Recommended Diet: Diabetes Type 2 Diet Procedures Procedures Performed: Open Reduction Internal Fixation Right Distal Humerus Fracture Pending Studies Studies pending at discharge: no Laboratory Results Hemoglobin A1c Test 08/05/17 05:25 Range/Units Estimated Average Glucose 151 mg/dl Hemoglobin A1c 6.9 H 4.5-5.6 % Medical Emergencies . Who to Call and When: Medical Emergencies: If at any time you feel your situation is an emergency, please call 911 immediately. . Non-Emergent Contact Non-Emergency issues call your: Surgeon Call Non-Emergent contact if: temperature is above 101, your pain is not controlled, your pain is worsening . . "Provider Documentation" section prepared by Vicente Lombardi. . Core Measure Problem Core Measures: None
[2017-08-06 11:15] VITALS: PULSE 79; O2SAT 100
--- NOTE | 2017-08-06 11:40 | Progress Note ---
Subjective Date of Service: Aug 06, 2017. Subjective Pt evaluation today including: conversation w/ patient, physical exam, chart review, lab review, review of studies, review of inpatient medication list Pain: none PO Intake: good Voiding: palafox catheter in place Pt is seen and examined by me. Pt denies cp, sob, dizziness, palpitation and loc. pt denies abdominal , nausea, vomiting and diarrhea. Pt denies any urinary symptoms such as burning and frequency today. Problem List Medical Problems: (1) Change in mental status Status: Acute (2) Fall Status: Acute (3) Fracture of clavicle, left, closed Status: Acute (4) Hypoglycemia Status: Acute (5) Sepsis Status: Acute (6) UTI (urinary tract infection) Status: Acute Review of Systems All Other Systems: Reviewed and Negative Medications Medications (Trade) Dose Ordered Sig/Shiva Route Start Time Stop Time Status Last Admin Dose Admin Clopidogrel Bisulfate (plAVix TAB) 75 mg QAM PO 08/06/17 09:00 09/05/17 08:59 08/06/17 09:05 75 MG Insulin Aspart (novoLOG ASPART) SLIDING SCALE ACHS MA 08/05/17 12:00 09/04/17 11:59 08/06/17 09:23 6 UNITS Insulin Glargine (Lantus Solostar Pen) SEE PROTOCOL Q12 MA 08/05/17 21:00 08/06/17 09:42 DC 08/06/17 09:24 10 UNITS Ertapenem 1 gm/ Sodium Chloride 50 ml @ 100 mls/hr DAILY@1400 IV 08/05/17 15:00 08/10/17 14:59 08/05/17 14:46 100 MLS/HR Objective Vital Signs Date Time Temp Pulse Resp B/P (MAP) Pulse Ox O2 Delivery O2 Flow Rate FiO2 08/06/17 11:15 79 14 100 Nasal Cannula 3.0 08/06/17 07:45 36.5 76 18 137/73 (94) 100 Nasal Cannula 3.0 08/06/17 07:45 Nasal Cannula 3.0 08/06/17 07:20 68 14 100 Nasal Cannula 3.0 08/06/17 03:46 85 14 98 Nasal Cannula 3.0 08/06/17 00:30 Nasal Cannula 3.0 08/06/17 00:25 36.7 105 16 120/68 (85) 99 Nasal Cannula 3.0 08/05/17 22:59 104 14 98 Nasal Cannula 3.0 08/05/17 19:54 95 14 92 Nasal Cannula 3.0 08/05/17 16:30 Nasal Cannula 3.0 08/05/17 15:15 84 14 100 Nasal Cannula 3.0 08/05/17 15:13 36.7 84 16 138/72 (94) 100 Nasal Cannula 3.0 Physical Exam General Appearance: no apparent distress, + obese Neck: supple Cardiovascular: regular rate, rhythm, no murmur Abdomen: normal bowel sounds, non tender, soft Extremities: no calf tenderness Neurologic/Psychiatric: no motor/sensory deficits, alert, normal mood/affect Skin: no rash Laboratory Results Last 24 Hours Test 08/05/17 11:58 08/05/17 17:04 08/05/17 20:29 08/06/17 05:26 Bedside Glucose 183 mg/dl 213 mg/dl 262 mg/dl White Blood Count 14.19 K/uL Red Blood Count 2.59 M/uL Hemoglobin 7.6 g/dL Hematocrit 25.7 % Mean Corpuscular Volume 99.2 fL Mean Corpuscular Hemoglobin 29.3 pg Mean Corpuscular Hemoglobin Concent 29.6 g/dl RDW Standard Deviation 56.6 fL RDW Coefficient of Variation 15.6 % Platelet Count 219 K/uL Mean Platelet Volume 11.2 fL Sodium Level 143 mmol/L Potassium Level 4.5 mmol/L Chloride Level 107 mmol/L Carbon Dioxide Level 34 mmol/L Anion Gap 2.0 mmol/L Blood Urea Nitrogen 22 mg/dl Creatinine 0.61 mg/dl Est Creatinine Clear Calc Drug Dose 105.9 ml/min Estimated GFR () 107.2 Estimated GFR (Non- 92.5 BUN/Creatinine Ratio 36.4 Random Glucose 120 mg/dl Calcium Level 8.0 mg/dl Chemistry Specimen Hemolysis Test 08/06/17 07:44 Bedside Glucose 124 mg/dl Assessment and Plan 66 y/o F Hx Parkinson, CAD, HTN, HPL, morbid obesity with 02-dependence, dementia. Pt resides in a nursing facility and suffered a fall resulting in a distal R humeral fracture. The pt make use of her upper extremities for ambulation with assistance. She is currently post-op ORIF. She appears to be recovering well and has no specific complaints although a history may be somewhat limited due to underlying dementia. Post ORIF - pt does not have any specific complaints post-op - pain control is adequate and 02 saturation is maintained. management and treatment as per ortho , per them okay to discharge. UTI: UA is positive and patient is symptomatic. We look through patient past urine culture reports from 07/08/17 and positive for ESBL. We discuss the antibiotic resisitant with our pharmacist and came up with ertapenem 1g daily. We will follow urine culture, and based on the culture may decerlate the therapy. - unfortunately cultures were not sent as requested. - please give ertapenem 1g IV for today. - We can discharge on Nitrofurantoin 100 mg po BID for 8 more days to complete the course. DM - management and treatment as per pharmacy to inpatient goal of BG<180 Chronic 02 -dependence - due to obesity and hypoventilation, pt may need overnight CPAP if saturations suffer owing to narcotic use and post anesthesia state CAD - no evidence of ACS - will restart Plavix - presumably she is Statin- intolerant HTN - Cont Losartan DISPO-- Can be discharged to skill nursing facility Continued [facility] stay due to: multiple IV medications needed Discharge planning: [facility]pc facility
[2017-08-06] MEDS ORDERED: INSULIN GLARGINE SOLOSTAR 100 UNITS/ML 3 ML PEN SC ONE (12:00)
[2017-08-06] MEDS: ERTAPENEM IV 1 GM in SODIUM CHLOR 0.9% AD-VAN 50ML IV SCH (12:25)
[2017-08-06] MEDS ORDERED: NITR-5 PO (12:56)
[2017-08-06] MEDS ORDERED: OXYC-57 PO (12:56)
[2017-08-06 13:25] VITALS: BP 137/73; PULSE 79; TEMP 36.5; O2SAT 100
[2017-08-06] MEDS ORDERED: INSULIN GLARGINE SOLOSTAR 100 UNITS/ML 3 ML PEN SC SCH (21:00)
--- NOTE | 2017-08-08 10:15 | Discharge Summary ---
Orthopedic Discharge Summary Admission Date/Reason Aug 04, 2017 at 21:03 Right Distal Humerus Fracture. Discharge Date/Disposition Aug 06, 2017 senior care facility Diagnosis Principal Diagnosis: S/P ORIF Right distal humerus fracture Medication Reconciliation as per discharge instructions Admission Physical Exam As per Admitting History & Physical. Hospital Course POD#1 patient was having significant pain in her elbow. She was given pain medication to help with pain control. This eventually got under control. She also had a UTI. This was being covered by Medicine Service. POD#2 Pain was better controlled at this point. She would be scheduled for discharge to a senior living facility later in the day. Discharge Instructions Please refer to the electronic Patient Visit Report (Discharge Instructions) for additional information.
== END 2017-08-06 14:30 | DRG 493 ==
LOC: C.ACU 10:10 → C.3E 21:03 → ENRESERV 21:17
PROVIDERS: ADMIT Orthopaedic Surgery; ATTEND Orthopaedic Surgery
PROC: 0PSF04Z Reposition Right Humeral Shaft with Internal Fixation Device, Open Approach (ICD-10-PCS; principal; 2017-08-04 13:15)
DX: S42.401A Unspecified fracture of lower end of right humerus, initial encounter for closed fracture (principal); N39.0 Urinary tract infection, site not specified; I25.2 Old myocardial infarction; I10 Essential (primary) hypertension; E78.00 Pure hypercholesterolemia, unspecified; E11.9 Type 2 diabetes mellitus without complications; F41.9 Anxiety disorder, unspecified; F32.9 Major depressive disorder, single episode, unspecified; Z99.81 Dependence on supplemental oxygen; Z82.49 Family history of ischemic heart disease and other diseases of the circulatory system; W06.XXXA Fall from bed, initial encounter; Y92.129 Unspecified place in nursing home as the place of occurrence of the external cause; I25.10 Atherosclerotic heart disease of native coronary artery without angina pectoris; E78.5 Hyperlipidemia, unspecified; E66.01 Morbid (severe) obesity due to excess calories; F03.90 Unspecified dementia, unspecified severity, without behavioral disturbance, psychotic disturbance, mood disturbance, and anxiety; I48.91 Unspecified atrial fibrillation; G20 Parkinson's disease

== ENCOUNTER → 2017-08-14 | Outpatient (CLI) | payer OTHER ==
[~2017-08-14] MED LIST changes: -CEFAZOLIN 2000MG IV PUSH 10 ML IV SCH; -SODIUM CHLORIDE 0.9% 1000ML 1,000 ML IV SCH
[2017-08-14 08:59] LABS: BLOOD UREA NITROGEN 18 mg/dl (7-18); BUN/CREATININE RATIO 27.6 (10-20); CALCIUM 9.1 mg/dl (8.5-10.1); CARBON DIOXIDE 36 mmol/L (21-32); CHLORIDE 102 mmol/L (98-107); CREATININE 0.65 mg/dl (0.60-1.20); GLUCOSE 157 mg/dl (70-99); POTASSIUM 4.1 mmol/L (3.5-5.1); SODIUM 145 mmol/L (136-145)
[2017-08-14 09:37] LABS: HEMATOCRIT 30.1 % (37-47); MEAN CELL VOLUME 101.7 fL (80-100); MEAN CORPUSCULAR HEMOGLOBIN 29.7 pg (25-34); MEAN CORPUSCULAR HGB CONC 29.2 g/dl (32-36); PLATELET COUNT 534 K/uL (130-400); RED BLOOD COUNT 2.96 M/uL (4.2-5.4); WHITE BLOOD COUNT 14.17 K/uL (4.8-10.8)
[2017-08-14 09:39] LABS: ANISOCYTOSIS PRESENT; BASO % 0.4 %; BASO ABS # 0.05 K/uL (0-0.2); COMPLETE YES; EOS % 3.8 %; HYPOCHROMIA PRESENT; IG% 0.6 %; LYMPH % 22.2 %; LYMPH ABS # 3.15 K/uL (1.2-3.4); MONO % 10.8 %; NEUT % 62.2 %; VACUOLIZATION 1+
== END ==
LOC: C.LABUPUNI 08:36
PROVIDERS: ATTEND Nurse Practitioner Family
DX: D72.829 Elevated white blood cell count, unspecified (principal)

== ENCOUNTER → 2017-08-16 | Outpatient (CLI) | payer OTHER | LOC: C.LABUPUNI 14:56 | PROVIDERS: ATTEND Nurse Practitioner Family | DX: L89.309 Pressure ulcer of unspecified buttock, unspecified stage (principal) ==

== ENCOUNTER → 2017-08-22 | Outpatient (CLI) | payer OTHER ==
[2017-08-22 09:02] LABS: ALT/SGPT 11 U/L (12-78); BLOOD UREA NITROGEN 14 mg/dl (7-18); BUN/CREATININE RATIO 17.9 (10-20); CALCIUM 8.7 mg/dl (8.5-10.1); CARBON DIOXIDE 37 mmol/L (21-32); CHLORIDE 99 mmol/L (98-107); CREATININE 0.77 mg/dl (0.60-1.20); GLUCOSE 170 mg/dl (70-99); POTASSIUM 4.2 mmol/L (3.5-5.1); SODIUM 141 mmol/L (136-145)
[2017-08-22 09:05] LABS: ALB/GLOB RATIO 0.5 (0.9-2); ALKALINE PHOSPHATASE 164 U/L (45-117); AST/SGOT 10 U/L (15-37)
[2017-08-22 09:40] LABS: HEMATOCRIT 31.9 % (37-47); MEAN CELL VOLUME 100.6 fL (80-100); MEAN CORPUSCULAR HGB CONC 28.8 g/dl (32-36); MEAN PLATELET VOLUME 10.1 fL (7.4-10.4); PLATELET COUNT 461 K/uL (130-400); RED BLOOD COUNT 3.17 M/uL (4.2-5.4)
[2017-08-22 09:43] LABS: ANISOCYTOSIS PRESENT; BASO % 0.2 %; BASO ABS # 0.03 K/uL (0-0.2); COMPLETE YES; EOS % 5.6 %; HYPOCHROMIA PRESENT; IG% 0.3 %; LYMPH % 30.3 %; LYMPH ABS # 3.79 K/uL (1.2-3.4); MONO % 9.4 %; NEUT % 54.2 %; PLT ESTIMATE INCREASED
== END ==
LOC: C.LABUPUNI 08:31
PROVIDERS: ATTEND Nurse Practitioner Family
DX: D72.829 Elevated white blood cell count, unspecified (principal)

== ENCOUNTER → 2017-08-29 | Outpatient (CLI) | payer OTHER ==
[2017-08-29 09:53] LABS: BASO % 0.3 %; BASO ABS # 0.04 K/uL (0-0.2); COMPLETE YES; EOS % 6.4 %; HEMATOCRIT 34.5 % (37-47); IG% 0.3 %; LYMPH % 24.4 %; MEAN CELL VOLUME 101.8 fL (80-100); MEAN CORPUSCULAR HEMOGLOBIN 28.6 pg (25-34); MEAN CORPUSCULAR HGB CONC 28.1 g/dl (32-36); MEAN PLATELET VOLUME 10.6 fL (7.4-10.4); MONO % 6.7 %; NEUT % 61.9 %; PLATELET COUNT 354 K/uL (130-400); RED BLOOD COUNT 3.39 M/uL (4.2-5.4); WHITE BLOOD COUNT 13.54 K/uL (4.8-10.8)
== END ==
LOC: C.LABUPNIT 08:34
PROVIDERS: ATTEND Nurse Practitioner Family
DX: A41.9 Sepsis, unspecified organism (principal); E11.9 Type 2 diabetes mellitus without complications

== ENCOUNTER → 2017-09-07 | Outpatient (CLI) | payer OTHER ==
[2017-09-07 09:07] LABS: BASO % 0.2 %; BASO ABS # 0.04 K/uL (0-0.2); COMPLETE YES; EOS % 3.7 %; HEMATOCRIT 34.8 % (37-47); IG% 0.5 %; LYMPH % 17.6 %; LYMPH ABS # 3.61 K/uL (1.2-3.4); MEAN CORPUSCULAR HEMOGLOBIN 28.7 pg (25-34); MEAN CORPUSCULAR HGB CONC 29.3 g/dl (32-36); MEAN PLATELET VOLUME 11.4 fL (7.4-10.4); PLATELET COUNT 314 K/uL (130-400); RED BLOOD COUNT 3.55 M/uL (4.2-5.4); WHITE BLOOD COUNT 20.46 K/uL (4.8-10.8)
[2017-09-07 09:14] LABS: BLOOD UREA NITROGEN 36 mg/dl (7-18); BUN/CREATININE RATIO 43.1 (10-20); CALCIUM 8.6 mg/dl (8.5-10.1); CARBON DIOXIDE 32 mmol/L (21-32); CHLORIDE 97 mmol/L (98-107); CREATININE 0.82 mg/dl (0.60-1.20); GLUCOSE 196 mg/dl (70-99); POTASSIUM 4.2 mmol/L (3.5-5.1); SODIUM 136 mmol/L (136-145)
[2017-09-07 09:18] LABS: ALB/GLOB RATIO 0.5 (0.9-2); ALKALINE PHOSPHATASE 206 U/L (45-117); ALT/SGPT 9 U/L (12-78); AST/SGOT 17 U/L (15-37)
== END ==
LOC: C.LABUPUNI 08:46
PROVIDERS: ATTEND Nurse Practitioner Family
DX: I50.9 Heart failure, unspecified (principal); D72.829 Elevated white blood cell count, unspecified

== ENCOUNTER → 2017-09-14 | Outpatient (CLI) | payer OTHER ==
[2017-09-14 08:32] LABS: BASO % 0.2 %; BASO ABS # 0.04 K/uL (0-0.2); COMPLETE YES; EOS % 5.9 %; HEMATOCRIT 36.7 % (37-47); IG% 0.5 %; LYMPH % 20.1 %; LYMPH ABS # 3.56 K/uL (1.2-3.4); MEAN CELL VOLUME 98.7 fL (80-100); MEAN CORPUSCULAR HEMOGLOBIN 28.8 pg (25-34); MEAN CORPUSCULAR HGB CONC 29.2 g/dl (32-36); MEAN PLATELET VOLUME 11.1 fL (7.4-10.4); MONO % 8.1 %; NEUT % 65.2 %; PLATELET COUNT 390 K/uL (130-400); RED BLOOD COUNT 3.72 M/uL (4.2-5.4); WHITE BLOOD COUNT 17.67 K/uL (4.8-10.8)
== END ==
LOC: C.LABUPUNI 08:20
PROVIDERS: ATTEND Nurse Practitioner Family
DX: D72.829 Elevated white blood cell count, unspecified (principal)